=== PATIENT | female | born 1980 | race Caucasian/White ===

== ENCOUNTER 2019-05-22 14:09 | Emergency (ER) | payer MEDICAID, SELFPAY ==
--- NOTE | 2019-05-22 14:41 | ED.EYEPROB ---
HPI - Eye Problem General Chief complaint: Eye Problems <Keshia Colvin PA-C - Last Filed: 05/22/19 15:17> Stated complaint: left eye redness <Keshia Colvin PA-C - Last Filed: 05/22/19 15:17> Time Seen by Provider: 05/22/19 14:15 <Keshia Colvin PA-C - Last Filed: 05/22/19 15:17> Source: patient <Keshia Colvin PA-C - Last Filed: 05/22/19 15:17> Mode of arrival: ambulatory <Keshia Colvin PA-C - Last Filed: 05/22/19 15:17> Limitations: no limitations <Keshia Colvin PA-C - Last Filed: 05/22/19 15:17> History of Present Illness HPI Narrative: This is a 39 year old female that presents to the ER for left sided eye irritation and redness. Reports onset 2 days ago. No known injuries to the eye. Reports she is a contact lens wearer. She has continued to wear her contact lenses. Denies vision changes, vomiting, pain with EOMs, or discharge. <Keshia oClvin PA-C - Last Filed: 05/22/19 15:17> Related Data Allergies/adverse reactions: Allergies Allergy/AdvReac Type Severity Reaction Status Date / Time Penicillins Allergy Gastrointestinal Verified 05/22/19 14:41 Upset <Keshia Colvin PA-C - Last Filed: 05/22/19 15:17> Review of Systems Review of Systems: Narrative: CONSTITUTIONAL: Denies fever EYES: Reports redness. Denies visual changes, or discharge. <Keshia Colvin PA-C - Last Filed: 05/22/19 15:17> All systems reviewed & are unremarkable except as noted in HPI and below <Keshia Colvin PA-C - Last Filed: 05/22/19 15:17> PMFSH Past Medical History Medical History: Medical History (Updated 05/22/19 @ 15:08 by Keshia Colvin PA-C) GERD (gastroesophageal reflux disease) <Keshia Colvin PA-C - Last Filed: 05/22/19 15:17> Social History Social History: Social History (Updated 05/22/19 @ 14:44 by Keshia Colvin PA-C) Smoking status: Current every day smoker <Keshia Colvin PA-C - Last Filed: 05/22/19 15:17> Exam Narrative: Exam Narrative: GENERAL: Well-appearing, well-nourished, and in no acute distress. HEAD: Normocephalic, atraumatic. EYES: PERRLA and EOMI. Mild conjunctival injection of the left eye, no abnormal discharge. Eyelid everted, no foreign bodies noted. Vision 20/20 bilaterally. Positive fluorescein stain uptake on exam, 2 small corneal abrasions noted on the left. EXTREMITIES: Normal range of motion. No edema. SKIN: Warm, dry, no rash. NEURO: No focal deficits. Alert and oriented x3. PSYCH: Normal mood and affect <Keshia Colvin PA-C - Last Filed: 05/22/19 15:17> Course Vital Signs Vital signs: Vital Signs Temperature 37.0 C 05/22/19 14:43 Pulse Rate 82 05/22/19 14:43 Respiratory Rate 16 05/22/19 14:43 Blood Pressure 124/62 05/22/19 14:43 Pulse Oximetry 100 05/22/19 14:43 Temperature 37.0 C 05/22/19 14:43 Pulse Rate 82 05/22/19 14:43 Respiratory Rate 16 05/22/19 14:43 Blood Pressure 124/62 05/22/19 14:43 Pulse Oximetry 100 05/22/19 14:43 <Keshia Colvin PA-C - Last Filed: 05/22/19 15:17> Vital Signs Temperature 37.0 C 05/22/19 14:43 Pulse Rate 82 05/22/19 14:43 Respiratory Rate 16 05/22/19 14:43 Blood Pressure 124/62 05/22/19 14:43 Pulse Oximetry 100 05/22/19 14:43 Temperature 37.0 C 05/22/19 14:43 Pulse Rate 82 05/22/19 14:43 Respiratory Rate 16 05/22/19 14:43 Blood Pressure 124/62 05/22/19 14:43 Pulse Oximetry 100 05/22/19 14:43 <Curtis Benavides MD - Last Filed: 05/22/19 16:27> MDM - Eye Problem MDM Narrative Medical decision making narrative: Patient presents the emergency department for left eye irritation x2 days. No abnormal discharge from the eye. Mild conjunctival injection in the eye. There are 2 small corneal abrasions in the eye. No foreign bodies noted. Vision is 20/20 bilaterally. Patient is a contact lens wearer so will be started on a fluoroquinolone eye ointment. She was
[2019-05-22 14:43] VITALS: BP 124/62; PULSE 82; RESP 16; TEMP 37; O2SAT 100
== END 2019-05-22 15:18 | disposition home or self-care (01) ==
PROVIDERS: Emergency Provider Family Medicine
DX: S05.02XA Injury of conjunctiva and corneal abrasion without foreign body, left eye, initial encounter (principal); K21.9 Gastro-esophageal reflux disease without esophagitis; F17.200 Nicotine dependence, unspecified, uncomplicated; X58.XXXA Exposure to other specified factors, initial encounter
CPT/HCPCS: 99283; A9270

== ENCOUNTER 2019-09-10 12:56 | Outpatient (CLI) | payer MEDICAID, SELFPAY ==
[2019-09-10 13:40] LABS: Basophils Absolute Auto 0.1 K/mm3 (0.0-0.1); Basophils Percent Auto 0.7 % (0.2-1.2); Eosinophils Absolute Auto 0.2 K/mm3 (0-0.3); Hematocrit 42.4 % (37.0-47.0); Hemoglobin 14.3 g/dL (12.0-15.0); Immature Granulocyte Absolute 0.03 K/mm3 (0.00-0.031); Immature Granulocyte Percent A 0.3 % (0-0.5); Lymphocytes Absolute Auto 4.49 K/mm3 (0.9-3.2); Lymphocytes Percent Auto 38.3 % (18.3-44.2); Mean Corpuscular HGB Conc 33.7 g/dl (32-36); Mean Corpuscular Hemoglobin 29.3 pg (26-34); Mean Corpuscular Volume 86.9 fl (80-100); Mean Platelet Volume 8.8 fl (7.4-10.4); Monocytes Absolute Auto 0.7 K/mm3 (0.1-0.6); Monocytes Percent Auto 5.6 % (2.6-8.5); Neutrophils Absolute Auto 6.2 K/mm3 (1.3-6.7); Neutrophils Percent Auto 53.1 % (45.5-73.1); Platelet Count Result 286 k/mm3 (150-375); Red Blood Count 4.88 M/mm3 (4.2-5.4); Red Cell Distribution Width 13.3 % (11.5-14.5); White Blood Count 11.7 K/mm3 (4.5-10.0)
[2019-09-10 13:49] LABS: Atypical Lymphocytes Present; Platelet Estimate Adequate (Adequate)
[2019-09-10 13:57] LABS: Alanine Aminotransferase 62 U/L (4-35); Albumin Level 4.4 g/dL (3.5-5.1); Alkaline Phosphatase 60 U/L (38-126); Aspartate Amino Transferase 56 U/L (14-36); Bilirubin,Total 0.2 mg/dL (0.2-1.3); Blood Urea Nitrogen 10 mg/dL (7-17); Carbon Dioxide 28 mmol/L (22-30); Chloride 104 mmol/L (98-107); Cholesterol 182 mg/dL (0-200); Estimated Glomerular Filt Rate > 60; Glucose 74 mg/dL (65-105); HDL Direct 29 mg/dL; Potassium 4.1 mmol/L (3.4-5.0); Sodium 137 mmol/L (137-145); Triglycerides 349 mg/dL (<150)
[2019-09-10 14:09] LABS: LDL Cholesterol Direct 75 mg/dL
[2019-09-10 14:23] LABS: Vitamin D 25 Hydroxy 38.9 ng/mL
[2019-09-10 14:28] LABS: Total Triiodothyronine (T3) 1.44 NG/ML (0.97-1.69)
[2019-09-12 01:37] LABS: CA-125 10 U/mL (<35)
== END 2019-09-10 12:57 | disposition home or self-care (01) ==
PROVIDERS: PCP Family Medicine
DX: R10.30 Lower abdominal pain, unspecified (principal)
CPT/HCPCS: 36415; 80053; 80061; 82306; 84439; 84443; 84480; 85025; 86304

== ENCOUNTER 2019-09-12 09:03 | Outpatient (CLI) | payer MEDICAID, SELFPAY ==
--- NOTE | ~2019-09-12 | CT_ITS ---
EXAMINATION: CT abdomen w con DATE: 09/12/2019 09:40 INDICATION: Abdominal bloating TECHNIQUE: Computed tomography (CT) of the abdomen was performed with 100 cc Omnipaque 350 intravenou s contrast. Automated exposure control and iterative reconstruction technique were employed. Exam dos e: 250.83 mGy-cm total exam DLP. COMPARISON: None. FINDINGS: The lung bases are clear. Normal heart size. No pericardial or pleural effusion. There is diffuse hepatic steatosis. Status post cholecystectomy. No bile duct or pancreatic duct dilatation. No hepatic, splenic, pancreatic, right adrenal space-occupying mass lesion. An approximately 1 cm lef t adrenal adenoma. Possible 5 mm left lateral limb adrenal adenoma. Probable 6 mm right renal cyst. No other renal space occupying mass lesion. No urinary tract calculus or hydronephrosis. Normal caliber of the abdominal aorta. No intraperitoneal or retroperitoneal mass lesion or adenopath y or ascites. The appendix is partially included in the examination appears normal. No evidence of bowel obstructio n. No intraperitoneal free air. Small fat-containing umbilical hernia. Included skeletal structures are unremarkable. IMPRESSION: Hepatic steatosis Status post cholecystectomy Left adrenal adenoma(s) 6 mm right renal cyst Reviewed, dictated and finalized at [facility]. Reviewed, dictated and finalized at location [facility].
== END 2019-09-12 09:04 | disposition home or self-care (01) ==
PROVIDERS: PCP Family Medicine; Visit Provider Family Medicine
DX: R14.0 Abdominal distension (gaseous) (principal); K76.0 Fatty (change of) liver, not elsewhere classified; D35.02 Benign neoplasm of left adrenal gland; N28.1 Cyst of kidney, acquired; Z90.49 Acquired absence of other specified parts of digestive tract
CPT/HCPCS: 74160; Q9967

== ENCOUNTER 2019-10-15 10:02 | Outpatient (CLI) | payer MEDICAID, SELFPAY ==
[2019-10-15 10:54] LABS: Alanine Aminotransferase 46 U/L (4-35); Alkaline Phosphatase 65 U/L (38-126); Aspartate Amino Transferase 43 U/L (14-36); Bilirubin,Total 0.4 mg/dL (0.2-1.3)
[2019-10-15 11:34] LABS: HIV 1/2 Ab P24 Ag Result Negative (Negative)
== END 2019-10-15 10:03 | disposition home or self-care (01) ==
PROVIDERS: PCP Family Medicine; Visit Provider Nurse Practitioner
DX: K75.81 Nonalcoholic steatohepatitis (NASH) (principal); R10.30 Lower abdominal pain, unspecified; R14.0 Abdominal distension (gaseous)
CPT/HCPCS: 36415; 80076; 84450; 84460; 86703; G0432

== ENCOUNTER 2019-11-13 11:37 | Outpatient (CLI) | payer OTHER, SELFPAY ==
[2019-11-13 12:19] LABS: Alanine Aminotransferase 47 U/L (4-35); Albumin Level 4.1 g/dL (3.5-5.1); Alkaline Phosphatase 60 U/L (38-126); Aspartate Amino Transferase 37 U/L (14-36); Bilirubin,Total 0.1 mg/dL (0.2-1.3); Blood Urea Nitrogen 11 mg/dL (7-17); Calcium 9.1 mg/dL (8.4-10.2); Carbon Dioxide 29 mmol/L (22-30); Chloride 104 mmol/L (98-107); Creatine Kinase 64 U/L (30-135); Estimated Glomerular Filt Rate > 60; Glucose 100 mg/dL (65-105); Sodium 139 mmol/L (137-145)
== END 2019-11-13 11:38 | disposition home or self-care (01) ==
PROVIDERS: PCP Family Medicine; Visit Provider Nurse Practitioner
DX: E78.1 Pure hyperglyceridemia (principal); K76.0 Fatty (change of) liver, not elsewhere classified
CPT/HCPCS: 36415; 80053; 82550

== ENCOUNTER 2019-12-25 12:32 | Outpatient (CLI) | payer OTHER, SELFPAY ==
[2019-12-25 13:11] LABS: Alanine Aminotransferase 41 U/L (4-35); Albumin Level 4.2 g/dL (3.5-5.1); Alkaline Phosphatase 57 U/L (38-126); Anion Gap 6 mmol/L (8-16); Aspartate Amino Transferase 40 U/L (14-36); Bilirubin,Total 0.4 mg/dL (0.2-1.3); Blood Urea Nitrogen 12 mg/dL (7-17); Calcium 8.9 mg/dL (8.4-10.2); Carbon Dioxide 26 mmol/L (22-30); Chloride 106 mmol/L (98-107); Creatine Kinase 68 U/L (30-135); Estimated Glomerular Filt Rate > 60; Glucose 98 mg/dL (65-105); Sodium 138 mmol/L (137-145)
[2019-12-25 13:49] LABS: HIV 1/2 Ab P24 Ag Result Negative (Negative)
[2019-12-25 13:56] LABS: Hepatitis B Surface Antigen Negative (Negative)
[2019-12-25 14:02] LABS: HAV RESULT Negative (Negative); Hepatitis B Core IgM Result Negative (Negative)
[2019-12-25 14:13] LABS: Hepatitis C Virus Antibody Negative (Negative)
== END 2019-12-25 12:33 | disposition home or self-care (01) ==
PROVIDERS: PCP Family Medicine; Visit Provider Nurse Practitioner
DX: K76.0 Fatty (change of) liver, not elsewhere classified (principal); R94.5 Abnormal results of liver function studies; R76.0 Raised antibody titer; R60.9 Edema, unspecified; M79.10 Myalgia, unspecified site
CPT/HCPCS: 36415; 80053; 80074; 82550; 86703; G0432

== ENCOUNTER 2020-01-01 13:25 | Outpatient (CLI) | payer OTHER, SELFPAY ==
--- NOTE | ~2020-01-01 | MM_ITS ---
EXAMINATION: MM screening sujatha BI w ant HISTORY: Screening TECHNIQUE: Craniocaudal and mediolateral oblique 3-D tomosynthesis images were obtained and synthetic 2-D images were generated. CAD analysis was submitted and interpreted. COMPARISON: No prior mammogram is available for comparison at this institution. BREAST PARENCHYMAL COMPOSITION: The breasts are heterogeneously dense, which may obscure small masses . FINDINGS: There is no evidence of suspicious mass, calcification, or architectural distortion to sugg est malignancy in either breast. There has been no suspicious interval change. IMPRESSION: 1. No mammographic evidence of malignancy. 2. Recommend routine screening mammography in one year. BI-RADS Category 1: Negative Reviewed, dictated and finalized at location [facility].
== END 2020-01-01 13:26 | disposition home or self-care (01) ==
LOC: ANHIMG 13:27
PROVIDERS: PCP Family Medicine; Visit Provider Nurse Practitioner
DX: Z12.31 Encounter for screening mammogram for malignant neoplasm of breast (principal)
CPT/HCPCS: 77063; 77067

== ENCOUNTER 2020-02-11 11:41 | Outpatient (CLI) | payer OTHER, SELFPAY ==
[2020-02-11 12:21] LABS: Basophils Absolute Auto 0.1 K/mm3 (0.0-0.1); Basophils Percent Auto 0.6 % (0.2-1.2); Eosinophils Absolute Auto 0.2 K/mm3 (0-0.3); Eosinophils Percent Auto 1.8 % (0-4.4); Hematocrit 42.8 % (37.0-47.0); Hemoglobin 14.2 g/dL (12.0-15.0); Immature Granulocyte Absolute 0.05 K/mm3 (0.00-0.031); Immature Granulocyte Percent A 0.4 % (0-0.5); Lymphocytes Absolute Auto 4.06 K/mm3 (0.9-3.2); Lymphocytes Percent Auto 35.5 % (18.3-44.2); Mean Corpuscular HGB Conc 33.2 g/dl (32-36); Mean Corpuscular Volume 87.3 fl (80-100); Mean Platelet Volume 8.2 fl (7.4-10.4); Monocytes Absolute Auto 0.6 K/mm3 (0.1-0.6); Monocytes Percent Auto 5.5 % (2.6-8.5); Neutrophils Absolute Auto 6.4 K/mm3 (1.3-6.7); Neutrophils Percent Auto 56.2 % (45.5-73.1); Platelet Count Result 240 k/mm3 (150-375); Red Cell Distribution Width 12.8 % (11.5-14.5); White Blood Count 11.4 K/mm3 (4.5-10.0)
[2020-02-11 12:36] LABS: Alanine Aminotransferase 103 U/L (4-35); Albumin Level 4.1 g/dL (3.5-5.1); Alkaline Phosphatase 55 U/L (38-126); Anion Gap 8 mmol/L (8-16); Aspartate Amino Transferase 54 U/L (14-36); Bilirubin,Total 0.5 mg/dL (0.2-1.3); Blood Urea Nitrogen 12 mg/dL (7-17); Calcium 9.3 mg/dL (8.4-10.2); Carbon Dioxide 33 mmol/L (22-30); Chloride 99 mmol/L (98-107); Estimated Glomerular Filt Rate > 60; Glucose 111 mg/dL (65-105); Magnesium 1.7 mg/dL (1.6-2.3); Phosphorus 3.4 mg/dL (2.5-4.5); Potassium 4.5 mmol/L (3.4-5.0); Sodium 140 mmol/L (137-145)
[2020-02-11 12:42] LABS: NT Pro B Type Natriuretic Pept 47 PG/ML (5-100)
[2020-02-11 13:39] LABS: Folic Acid 9.1 ng/mL (2.76->20)
== END 2020-02-11 11:42 | disposition home or self-care (01) ==
PROVIDERS: PCP Family Medicine; Visit Provider Nurse Practitioner
DX: M79.662 Pain in left lower leg (principal); M79.661 Pain in right lower leg; R60.9 Edema, unspecified; R94.5 Abnormal results of liver function studies; K76.0 Fatty (change of) liver, not elsewhere classified
CPT/HCPCS: 36415; 80053; 82306; 82607; 82746; 83735; 83880; 84100; 85025

== ENCOUNTER 2020-04-07 13:36 | Outpatient (CLI) | payer OTHER, SELFPAY ==
--- NOTE | ~2020-04-07 | XR_ITS ---
LUMBAR SPINE INDICATION: Low back pain TECHNIQUE: 3 views lumbar spine COMPARISON: None FINDINGS: No fracture, subluxation or dislocation. No evidence for spondylolysis or spondylolisthesi s. Vertebral bodies and disk spaces are preserved. There are cholecystectomy clips. IMPRESSION: 1: No significant abnormality of the lumbar spine identified. Reviewed, dictated and finalized at location [facility]. 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
[2020-04-07 14:25] LABS: Cholesterol 244 mg/dL (0-200); HDL Direct 25 mg/dL; Triglycerides 287 mg/dL (<150)
[2020-04-07 14:35] LABS: LDL Cholesterol Direct 170 mg/dL
== END 2020-04-07 13:37 | disposition home or self-care (01) ==
LOC: ANHLAB 13:37
PROVIDERS: PCP Family Medicine; Visit Provider Nurse Practitioner
DX: M54.5 Low back pain (principal); E78.1 Pure hyperglyceridemia
CPT/HCPCS: 36415; 72100; 80061

== ENCOUNTER 2020-04-30 13:15 | Outpatient (RCR) | payer OTHER, SELFPAY ==
--- NOTE | 2020-04-08 10:38 | PTOPEVAL ---
PHYSICAL THERAPY EVALUATION AND PLAN OF CARE Thank you for referring Debbi Zhao to [facility].? The patient is scheduled to be seen for therapy? 2x/week for 4 weeks. Please review, sign, date and return this plan of care BLANCHE. I agree with and certify that the following plan of care is medically necessary. Referring Physician Date Attending Provider: Umu Livingston, CAREER TECHNICAL EDUCATION INSTRUCTOR Evaluation Diagnosis weakness, bilateral Leg pain Onset 4months Subjective Information Debbi is here today with c/o Query Text:As Reported By Patient/ leg pain. She reports that Family she was placed in lipitor but it caused leg pain and swelling, so she was taken off the medication and placed on something else that didn't work either and now her legs contiue her hurt. Reports that sleeping is very difficult. Self Report Pain Assessment Bilateral Leg(s) Reported Pain Level 7 Pain Description Burning,Stabbing Pain Frequency Chronic,Continuous Other Pain Aggravating Factors nothing imparticular aggravates Pain Behaviors Irritable Pain Score Pain Score 7: Self Report Interventions Used Interventions Used By Clinicians Exercise Pain Relief Interventions Used By Heat Patient Other Alleviating Interventions states that elevating increases symptoms Cervical and Lumbar ROM Lumbar ROM Lumbar Flexion (0-90) 40 Query Text:Active in Degrees Lumbar Flexion Active Mid Theodore Query Text:Hands to: Lumbar Extension (0-40) 8 Query Text:Active in Degrees Lateral Rotation Right (0-45) 20 Query Text:Active in Degrees Lateral Rotation Left (0-45) 30 Query Text:Active in Degrees Lumbar Comments very stiff and slow movements; left rotation increased pulling in low back; extension is performed with mild abberent movement with left rotation Lower Extremity Muscle Strength Testing Hip Strength Bilateral Hip Flexion Strength 4- Good - Hip Extension Strength 3- Fair - Hip Abduction Strength 4+ Good + Hip Strength Comments reports a pulling in her back with MMT Knee Strength Bilateral Knee Flexion Strength 3+ Fair + Knee Extension Strength 3+ Fair + Knee Strength Comments repor
--- NOTE | 2020-04-23 07:32 | PCPTNOTE ---
Patient called & cancelled scheduled appointment this date due to not getting enough sleep.
--- NOTE | 2020-04-30 13:30 | PTOPEVAL ---
PHYSICAL THERAPY DISCHARGE NOTE Thank you for referring Debbi Zhao to [facility].? Please review, sign, date and return this plan of care BLANCHE. I agree with and certify that the following plan of care is medically necessary. Referring Physician Date Attending Provider: Umu Livingston, INTERNIST Discharge Diagnosis weakness, bilateral Leg pain Onset 4months Subjective Information Debbi is here today with c/o Query Text:As Reported By Patient/ leg pain. After 3 weeks of Family therapy states there is not a significant change in the leg pain that she experiences. Self Report Pain Assessment Bilateral Leg(s) Reported Pain Level 7 Pain Description Tightness Pain Frequency Continuous Pain Aggravating Factors Walking Pain Score Pain Score 7: Self Report Interventions Used Interventions Used By Clinicians Exercise Pain Relief Interventions Used By Heat Patient Other Alleviating Interventions . Cervical and Lumbar ROM Lumbar ROM Lumbar Flexion (0-90) 45 Query Text:Active in Degrees Lumbar Flexion Active Mid Theodore Query Text:Hands to: Lumbar Extension (0-40) 5 Query Text:Active in Degrees Lateral Rotation Right (0-45) 25 Query Text:Active in Degrees Lateral Rotation Left (0-45) 25 Query Text:Active in Degrees Lumbar Comments very stiff and slow movements; extension continues to have mild abberent movement Lower Extremity Muscle Strength Testing Hip Strength Bilateral Hip Flexion Strength 4+ Good + Hip Extension Strength 4- Good - Hip Abduction Strength 5 Normal Hip Strength Comments reports mild symptoms in the low back with MMT, but nothing terrible. Knee Strength Bilateral Knee Flexion Strength 4+ Good + Knee Extension Strength 4+ Good + Knee Strength Comments reports a little pain in low back with MMT Muscle Length Testing Muscle Length Testing Left Hamstring Length -35 Query Text:(90 - 90 Position) Right Hamstring Length -35 Query Text:(90 - 90 Position) Balance Assessment Time Up Go (TUG) Timed Up and Go Test (TUG) (Seconds) 13 Assistive Devices None Comments 3 weeks ago = 14seconds 5 Time Sit to Stand Time in Seconds 13.81 5 Time Sit to Stand Comments 3 weeks ago = 19.44seconds Query Text:Normative Data: If Greater Than 15 Seconds, 74% Increase Risk for
== END 2020-06-22 10:40 | disposition home or self-care (01) ==
LOC: ANHPT 13:15
PROVIDERS: PCP Family Medicine; Visit Provider Nurse Practitioner
DX: R53.1 Weakness (principal)
CPT/HCPCS: 97110; 97112; 97140; 97161

== ENCOUNTER 2020-05-07 10:21 | Outpatient (CLI) | payer OTHER, SELFPAY ==
--- NOTE | ~2020-05-07 | MR_ITS ---
EXAMINATION: MR lumbar spine wo con DATE: 05/07/2020 11:26 INDICATION: Low back pain. TECHNIQUE: Magnetic resonance imaging (MRI) of the lumbar spine was performed without intravenous con trast. Sequences included sagittal T2-weighted FSE, sagittal T2-weighted FS FSE, sagittal T1-weighted FSE, and axial T2-weighted FSE. COMPARISON: Lumbar spine radiographs 04/07/2020 FINDINGS: Bone alignment is normal. Vertebral body heights and intervertebral disc heights are normal . The distal spinal cord signal intensity is normal. The conus medullaris is at L1-L2. The following disc levels are specifically discussed: L1-L2: The disc does not extend beyond the endplate margin. There is mild bilateral facet joint osteo arthritis. There is no neural foraminal stenosis. There is no central canal stenosis. L2-L3: The disc does not extend beyond the endplate margin. There is mild bilateral facet joint osteo arthritis. There is no neural foraminal stenosis. There is no central canal stenosis. L3-L4: The disc does not extend beyond the endplate margin. There is no facet joint osteoarthritis. T here is no neural foraminal stenosis. There is no central canal stenosis. L4-L5: The disc does not extend beyond the endplate margin. There is mild bilateral facet joint osteo arthritis. There is no neural foraminal stenosis. There is no central canal stenosis. L5-S1: The disc does not extend beyond the endplate margin. There is moderate right and severe left f acet joint osteoarthritis. There is no neural foraminal stenosis. There is no central canal stenosis. IMPRESSION: 1. Lumbar facet joint osteoarthritis. Reviewed, dictated and finalized at location [facility]. 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
== END 2020-05-07 10:22 | disposition home or self-care (01) ==
PROVIDERS: PCP Family Medicine; Visit Provider Nurse Practitioner
DX: M51.36 Other intervertebral disc degeneration, lumbar region (principal)
CPT/HCPCS: 72148

== ENCOUNTER 2020-06-11 16:45 | Emergency (ER) | payer OTHER, SELFPAY ==
[2020-06-11 16:50] VITALS: BP 134/74; PULSE 66; RESP 15; TEMP 36.1; O2SAT 100
--- NOTE | 2020-06-11 17:31 | ED.DENTAL ---
HPI - Dental/Oral General Chief complaint: Dental/Oral Stated complaint: toothache Time Seen by Provider: 06/11/20 17:00 Source: patient Mode of arrival: ambulatory Limitations: no limitations History of Present Illness HPI Narrative: Patient is a 40-year-old female who presents with left upper molar pain where she has dental caries and a loose tooth patient notes aching pain worse with activity and movement patient denies fever chills URI symptoms does not have a dentist presents in no distress Related Data Allergies Allergy/AdvReac Type Severity Reaction Status Date / Time amoxicillin Allergy Gastrointestinal Verified 06/11/20 17:01 Upset Penicillins Allergy Gastrointestinal Verified 06/11/20 17:01 Upset Review of Systems Review of Systems: All systems reviewed & are unremarkable except as noted in HPI and below PMFSH Past Medical History Medical History GERD (gastroesophageal reflux disease) Social History Social History Smoking status: Current every day smoker Gender identity (if verbalized by the patient): Female Exam Narrative: Exam Narrative: GENERAL: Well-appearing, well-nourished, and in no acute distress. HEAD: Normocephalic, atraumatic. EYES: PERRLA and EOMI. ENT: Nares clear, no rhinorrhea or epistaxis. Mucous membranes moist. Gross dental caries with loose premolar no erythema or space-occupying lesions uvula is midline no trismus or drooling CHEST: Clear to auscultation. No respiratory distress. No wheezes rales or rhonchi HEART: Regular rate and rhythm. No murmur heard. EXTREMITIES: Normal range of motion. No edema. SKIN: Warm, dry, no rash. NEURO: No focal deficits. Alert and oriented x3. Cranial nerves II through XII grossly intact PSYCH: Normal mood and affect. Course Course Emergency Course: Patient in the room no distress will be discharged with dentistry referrals Vital Signs Vital signs: Vital Signs Temperature 97.0 F L 06/11/20 16:50 Pulse Rate 66 06/11/20 16:50 Respiratory Rate 15 06/11/20 16:50 Blood Pressure 134/74 06/11/20 16:50 Pulse Oximetry 100 06/11/20 16:50 Temperature 97.0 F L 06/11/20 16:50 Pulse Rate 66 06/11/20 16:50 Respiratory Rate 15 06/11/20 16:50 Blood Pressure 134/74 06/11/20 16:50 Pulse Oximetry 100 06/11/20 16:50 MDM - Dental/Oral MDM Narrative Medical decision making narrative: Patients pain and complaint coupled with physical findings are consistent with dentalgia. There are no focal signs of space occupying lesions that are compromising to the airway. The floor of the mouth is soft with no signs of Cornelius Angina. Patient is without trismus or drooling and able to swallow secretions. Patient is felt appropriate for discharge home with dental follow up. Discharge Plan Discharge Clinical Impression: Toothache Patient Disposition: Home, Self-Care Condition: Stable Instructions: Antibiotic Form, Dental Abscess (ED) Additional Instructions: Follow-up with dentistry in the next 10 days. Go to ER for shortness of breath, difficulty breathing, chest pain, fever/chills, weakness, nauseau/vomitting, unable to swallow or open the mouth etc. or any other concerns. Take any prescribed medications as directed. If you do not have a drug allergy to tylenol or motrin and can tolerate it then take tylenol or motrin as needed for discomfort/pain. Prescriptions: New clindamycin HCl 150 mg capsule 150 mg PO TID 10 Days Qty: 30 RF: 0 chlorhexidine gluconate [Peridex] 0.12 % mouthwash 15 ml mucous membrane BID Qty: 1500 RF: 0 ibuprofen [IBU] 600 mg tablet 600 mg PO Q6H PRN (Reason: fever or pain) Qty: 7 RF: 0 No Action ciprofloxacin HCl 0.3 % ointment 0.5 inch EACH EYE TID 5 Days Qty: 3.5 RF: 0 Follow-up/Referrals: Yovany Parisi MD [Primary Care Provider] -
== END 2020-06-11 17:56 | disposition home or self-care (01) ==
PROVIDERS: Emergency Provider Emergency Medicine; PCP Family Medicine
DX: K08.89 Other specified disorders of teeth and supporting structures (principal); K21.9 Gastro-esophageal reflux disease without esophagitis; F17.210 Nicotine dependence, cigarettes, uncomplicated
CPT/HCPCS: 99283

== ENCOUNTER 2020-07-03 21:07 | Emergency (ER) | payer OTHER, SELFPAY ==
--- NOTE | ~2020-07-03 | XR_ITS ---
EXAMINATION: XR chest 2V 07/03/2020 21:35 INDICATION: Chest pain and cough PROCEDURE: 2 view chest COMPARISON: No prior studies for comparison. FINDINGS: The lungs are clear. The cardiomediastinal silhouette is within normal limits. There are no pleural effusions. There is no pneumothorax suspected. IMPRESSION: 1: NO ACUTE CARDIOPULMONARY DISEASE. Reviewed, dictated and finalized at location [facility]. 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
[2020-07-03 21:10] VITALS: BP 145/77; PULSE 68; RESP 16; TEMP 36.3; O2SAT 98
--- NOTE | 2020-07-03 21:23 | ECG_ITS ---
Measurements Intervals [place] Rate: 68 P: -20 [place]: 144 QRS: 64 QRSD: 82 T: 47 QT: 377 QTc: 403 Interpretive Statements SINUS OR ECTOPIC ATRIAL RHYTHM BASELINE ARTIFACT- I, II, AVR BORDERLINE ECG Electronically Signed On 07-04-2020 7:17:35 FLOOR ASSEMBLER by Christopher Davis D.O.
[2020-07-03 21:29] VITALS: PULSE 84; O2SAT 96
--- NOTE | 2020-07-03 21:35 | PC.NURSE ---
Patient in radiology
[2020-07-03 21:40] LABS: Basophils Absolute Auto 0.1 K/mm3 (0.0-0.1); Basophils Percent Auto 0.6 % (0.2-1.2); Eosinophils Absolute Auto 0.2 K/mm3 (0-0.3); Eosinophils Percent Auto 1.7 % (0-4.4); Hematocrit 39.9 % (37.0-47.0); Hemoglobin 13.2 g/dL (12.0-15.0); Immature Granulocyte Absolute 0.04 K/mm3 (0.00-0.031); Immature Granulocyte Percent A 0.3 % (0-0.5); Lymphocytes Absolute Auto 4.75 K/mm3 (0.9-3.2); Lymphocytes Percent Auto 40.6 % (18.3-44.2); Mean Corpuscular HGB Conc 33.1 g/dl (32-36); Mean Corpuscular Hemoglobin 28.6 pg (26-34); Mean Corpuscular Volume 86.6 fl (80-100); Mean Platelet Volume 8.5 fl (7.4-10.4); Monocytes Absolute Auto 0.6 K/mm3 (0.1-0.6); Neutrophils Absolute Auto 6.1 K/mm3 (1.3-6.7); Neutrophils Percent Auto 51.8 % (45.5-73.1); Platelet Count Result 308 k/mm3 (150-375); Red Blood Count 4.61 M/mm3 (4.2-5.4); Red Cell Distribution Width 13.2 % (11.5-14.5); White Blood Count 11.7 K/mm3 (4.5-10.0)
[2020-07-03] MEDS: ASPIRIN 81 MG CHEWABLE TABLET 324 MG PO (21:40)
[2020-07-03 21:50] LABS: INR 0.9; Partial Thromboplastin Time 30.3 SECONDS (22.3-36.8); Prothrombin Time 13.1 Seconds (11.1-14.7)
[2020-07-03 21:57] LABS: Anion Gap 9 mmol/L (8-16); Blood Urea Nitrogen 9 mg/dL (7-17); Calcium 8.9 mg/dL (8.4-10.2); Carbon Dioxide 28 mmol/L (22-30); Chloride 103 mmol/L (98-107); Estimated CRCL calculation 82 ml/min; Estimated Glomerular Filt Rate > 60; Glucose 144 mg/dL (65-105); Potassium 3.6 mmol/L (3.4-5.0); Sodium 140 mmol/L (137-145)
[2020-07-03 22:09] LABS: Troponin I < 0.012 ng/mL (0.000-0.034)
[2020-07-03 22:13] VITALS: BP 117/68; PULSE 72; RESP 22; O2SAT 99
--- NOTE | 2020-07-03 22:46 | ED.GENADULT ---
HPI - General Adult General Chief complaint: Chest Pain Stated complaint: upper respiratory Time Seen by Provider: 07/03/20 21:20 History of Present Illness HPI narrative: Patient is a 40-year-old female who presents the emergency department with chief complaint of chest pain. Patient reports that for the last several week episodes of chest discomfort. Patient states the pain is more of a pressure-like sensation states is worse with inspiration reports that she seen her primary care physician who did not recommend any other interventions patient states that she talked with her family today and they decided that she should come to the emergency department for evaluation. Patient denies any significant past medical history other than high cholesterol. Patient reports that she is a former smoker Related Data Allergies Allergy/AdvReac Type Severity Reaction Status Date / Time amoxicillin Allergy Gastrointestinal Verified 06/11/20 17:01 Upset Penicillins Allergy Gastrointestinal Verified 06/11/20 17:01 Upset Review of Systems Review of Systems: Narrative: A 10 system review of systems was completed on the patient and is negative except for what is stated in the HPI. Nursing and ancillary documentation was reviewed. [facility] Past Medical History Medical History GERD (gastroesophageal reflux disease) Social History Social History Smoking status: Current every day smoker Gender identity (if verbalized by the patient): Female Exam Narrative: Exam Narrative: GENERAL: Well-appearing, well-nourished, and in no acute distress. HEAD: Normocephalic, atraumatic. EYES: PERRLA and EOMI. ENT: Nares clear, no rhinorrhea or epistaxis. Mucous membranes moist. NECK: Supple. CHEST: Clear to auscultation. No respiratory distress. Reproducible chest wall tenderness HEART: Regular rate and rhythm. No murmur heard. Normal peripheral pulses. ABDOMEN: Soft, nontender, nondistended, normal active bowel sounds. EXTREMITIES: Normal range of motion. No edema. SKIN: Warm, dry, no rash. NEURO: No focal deficits. Alert and oriented x3. PSYCH: Normal mood and affect. Course Course Emergency Course: EKG shows sinus rhythm rate of [address] elevation or ST depression Vital Signs Vital signs: Vital Signs Temperature 36.3 C L 07/03/20 21:10 Pulse Rate 68 03/12/21 21:10 Respiratory Rate 16 07/03/20 21:10 Blood Pressure 145/77 H 07/03/20 21:10 Pulse Oximetry 98 07/03/20 21:10 Temperature 36.3 C L 07/03/20 21:10 Pulse Rate 68 07/03/20 23:27 Respiratory Rate 20 07/03/20 23:27 Blood Pressure 121/72 07/03/20 23:27 Pulse Oximetry 97 07/03/20 23:27 Medical Decision Making Vital Signs Vital Signs: Vital Signs Temperature 36.3 C L 07/03/20 21:10 Pulse Rate 68 07/03/20 21:10 Respiratory Rate 16 07/03/20 21:10 Blood Pressure 145/77 H 07/03/20 21:10 Pulse Oximetry 98 07/03/20 21:10 Temperature 36.3 C L 07/03/20 21:10 Pulse Rate 68 07/03/20 23:27 Respiratory Rate 20 07/03/20 23:27 Blood Pressure 121/72 07/03/20 23:27 Pulse Oximetry 97 07/03/20 23:27 Lab Data Result diagrams: 07/03/20 21:28 07/03/20 21:28 Labs: Lab Results 07/03/20 07/03/20 07/03/20 Range/Units 21:28 21:28 21:28 WBC 11.7 H (4.5-10.0) K/mm3 RBC 4.61 (4.2-5.4) M/mm3 Hgb 13.2 (12.0-15.0) g/dL Hct 39.9 (37.0-47.0) % MCV 86.6 (80-100) fl MCH 28.6 (26-34) pg MCHC 33.1 (32-36) g/dl RDW 13.2 (11.5-14.5) % Plt Count 308 (150-375) k/mm3 MPV 8.5 (7.4-10.4) fl Immature Gran % (Auto) 0.3 (0-0.5) % Neut % (Auto) 51.8 (45.5-73.1) % Lymph % (Auto) 40.6 (18.3-44.2) % [place] % (Auto) 5.0 (2.6-8.5) % Eos % (Auto) 1.7 (0-4.4) % Baso % (Auto) 0.6 (0.2-1.2) % Lymph # (Auto) 4.75 H
[2020-07-03 23:27] VITALS: BP 121/72; PULSE 68; RESP 20; O2SAT 97
[2020-07-04] VITALS: BP 114/68; PULSE 68; RESP 17; O2SAT 97
== END 2020-07-04 00:04 | disposition home or self-care (01) ==
PROVIDERS: Emergency Provider Emergency Medicine; PCP Family Medicine
DX: R07.89 Other chest pain (principal); K21.9 Gastro-esophageal reflux disease without esophagitis; F17.200 Nicotine dependence, unspecified, uncomplicated; R94.31 Abnormal electrocardiogram [ECG] [EKG]
CPT/HCPCS: 36415; 71046; 80048; 84484; 85025; 85610; 85730; 93005; 99284; A9270

== ENCOUNTER 2020-07-21 09:29 | Outpatient (CLI) | payer OTHER, SELFPAY ==
--- NOTE | 2020-07-21 | EST_ITS ---
Patient Info Name: Debbi Zhao Age: 40 years : 1980 Gender: Female Ht: 65 in Wt: 158 lbs BSA: 1.83 m2 Exam Date: 07/21/2020 10:14 AM Exam Location: [facility] Stress Patient Status: Outpatient Admit Date: 07/21/2020 Staff Ordering Physician: Miki, Umu Mccormick NP Attending Provider: Miki, Umu Mccormick NP Exercise Technologist: Saima Quintana RDCS Exercise Physician: Pedro Raymond MD Exam Type: CA stress test treadmill Study Info Indications R07.9 - Chest pain, unspecified A treadmill exercise stress test was performed. Summary 1. Abnormal ST segment depression consistent with myocardial ischemia. 2. No exercise induced chest pain. Protocol: Jay Stress ECG Details Stage: REST Duration (min): 7 min : 26 sec Speed (mph): 0.0 Grade (%): 0 HR (bpm): 74 SBP (mmHg): 121 DBP (mmHg): 65 METS: --- Stage: REST Duration (min): 35 min : 14 sec Speed (mph): 0.0 Grade (%): 0 HR (bpm): 94 SBP (mmHg): 121 DBP (mmHg): 65 METS: --- Stage: STAGE 1 Duration (min): 1 min : 0 sec Speed (mph): 1.7 Grade (%): 10 HR (bpm): 107 SBP (mmHg): 121 DBP (mmHg): 65 METS: --- Stage: STAGE 1 Duration (min): 2 min : 0 sec Speed (mph): 1.7 Grade (%): 10 HR (bpm): 114 SBP (mmHg): 121 DBP (mmHg): 65 METS: --- Stage: STAGE 1 Duration (min): 3 min : 0 sec Speed (mph): 1.7 Grade (%): 10 HR (bpm): 114 SBP (mmHg): 148 DBP (mmHg): 67 METS: --- Stage: STAGE 2 Duration (min): 1 min : 0 sec Speed (mph): 2.5 Grade (%): 12 HR (bpm): 129 SBP (mmHg): 148 DBP (mmHg): 67 METS: --- Stage: STAGE 2 Duration (min): 2 min : 0 sec Speed (mph): 2.5 Grade (%): 12 HR (bpm): 139 SBP (mmHg): 157 DBP (mmHg): 69 METS: --- Stage: STAGE 2 Duration (min): 3 min : 0 sec Speed (mph): 2.5 Grade (%): 12 HR (bpm): 151 SBP (mmHg): 157 DBP (mmHg): 69 METS: --- Stage: STAGE 3 Duration (min): 1 min : 0 sec Speed (mph): 3.4 Grade (%): 14 HR (bpm): 172 SBP (mmHg): 157 DBP (mmHg): 69 METS: --- Stage: STAGE 3 Duration (min): 1 min : 0 sec Speed (mph): 3.4 Grade (%): 14 HR (bpm): 172 SBP (mmHg): 157 DBP (mmHg): 69 METS: --- Stage: RECOVERY Duration (min): 0 min : 59 sec Speed (mph): 0.0 Grade (%): 0 HR (bpm): 150 SBP (mmHg): 162 DBP (mmHg): 72 METS: --- Stage: RECOVERY Duration (min): 1 min : 59 sec Speed (mph): 0.0 Grade (%): 0 HR (bpm): 118 SBP (mmHg): 162 DBP (mmHg): 72 METS: --- Stage: RECOVERY Duration (min): 2 min : 59 sec Speed (mph): 0.0 Grade (%): 0 HR (bpm): 103 SBP (mmHg): 161 DBP (mmHg): 66 METS: --- Stage: RECOVERY Duration (min): 3 min : 36 sec Speed (mph):
== END 2020-07-21 09:30 | disposition home or self-care (01) ==
PROVIDERS: PCP Family Medicine; Visit Provider Nurse Practitioner
DX: R07.9 Chest pain, unspecified (principal)
CPT/HCPCS: 93017

== ENCOUNTER 2020-08-20 11:14 | Outpatient (CLI) | payer OTHER, SELFPAY ==
[2020-08-20 12:28] LABS: Alanine Aminotransferase 113 U/L (4-35); Albumin Level 4.5 g/dL (3.5-5.1); Alkaline Phosphatase 73 U/L (38-126); Anion Gap 4 mmol/L (8-16); Aspartate Amino Transferase 110 U/L (14-36); Bilirubin,Total 0.8 mg/dL (0.2-1.3); Blood Urea Nitrogen 9 mg/dL (7-17); Calcium 9.4 mg/dL (8.4-10.2); Carbon Dioxide 34 mmol/L (22-30); Chloride 103 mmol/L (98-107); Cholesterol 225 mg/dL (0-200); Estimated Glomerular Filt Rate > 60; Glucose 116 mg/dL (65-105); HDL Direct 27 mg/dL; Potassium 5.1 mmol/L (3.4-5.0); Sodium 141 mmol/L (137-145); Triglycerides 308 mg/dL (<150)
[2020-08-20 12:40] LABS: LDL Cholesterol Direct 137 mg/dL
== END 2020-08-20 11:15 | disposition home or self-care (01) ==
LOC: ANHLAB 11:16
PROVIDERS: PCP Family Medicine; Visit Provider Internal Medicine Cardiovascular Disease
DX: E78.5 Hyperlipidemia, unspecified (principal)
CPT/HCPCS: 36415; 80053; 80061

== ENCOUNTER → 2020-09-05 03:36 | Outpatient (CLI) | payer OTHER, SELFPAY ==
[2020-09-05 19:43] LABS: SARS-CoV-2 RNA PCR Negative
== END ==
PROVIDERS: PCP Family Medicine; Visit Provider Specialist
DX: Z01.812 Encounter for preprocedural laboratory examination (principal); Z20.822 Contact with and (suspected) exposure to COVID-19
CPT/HCPCS: C9803; U0003; U0005

== ENCOUNTER 2020-09-09 03:10 | Day surgery (SDC) | payer OTHER, SELFPAY ==
[2020-09-08 10:30] VITALS: BMI 26.6
[2020-09-09] VITALS (8 sets, daily range): BP systolic 105–129; BP diastolic 64–81; PULSE 66–76; RESP 16–23; TEMP 36.3; O2SAT 95–97; BMI 29.6
[2020-09-09 07:38] LABS: Basophils Absolute Auto 0.1 K/mm3 (0.0-0.1); Basophils Percent Auto 0.9 % (0.2-1.2); Eosinophils Absolute Auto 0.2 K/mm3 (0-0.3); Eosinophils Percent Auto 2.5 % (0-4.4); Hemoglobin 13.3 g/dL (12.0-15.0); Immature Granulocyte Absolute 0.02 K/mm3 (0.00-0.031); Immature Granulocyte Percent A 0.2 % (0-0.5); Lymphocytes Absolute Auto 3.06 K/mm3 (0.9-3.2); Lymphocytes Percent Auto 33.6 % (18.3-44.2); Mean Corpuscular HGB Conc 33.3 g/dl (32-36); Mean Corpuscular Volume 84.2 fl (80-100); Mean Platelet Volume 8.2 fl (7.4-10.4); Monocytes Absolute Auto 0.6 K/mm3 (0.1-0.6); Monocytes Percent Auto 6.7 % (2.6-8.5); Neutrophils Absolute Auto 5.1 K/mm3 (1.3-6.7); Neutrophils Percent Auto 56.1 % (45.5-73.1); Platelet Count Result 302 k/mm3 (150-375); Red Blood Count 4.75 M/mm3 (4.2-5.4); Red Cell Distribution Width 12.9 % (11.5-14.5); White Blood Count 9.1 K/mm3 (4.5-10.0)
[2020-09-09 07:47] LABS: Anion Gap 10 mmol/L (8-16); Blood Urea Nitrogen 10 mg/dL (7-17); Calcium 9.6 mg/dL (8.4-10.2); Carbon Dioxide 26 mmol/L (22-30); Chloride 104 mmol/L (98-107); Estimated CRCL calculation 65 ml/min; Estimated Glomerular Filt Rate > 60; Glucose 122 mg/dL (65-105); Sodium 140 mmol/L (137-145)
[2020-09-09 07:48] LABS: Prothrombin Time 13.4 Seconds (11.1-14.7)
--- NOTE | 2020-09-09 08:29 | WPDMODSED ---
Moderate Sedation Note-Pt Data Patient Data Diagnosis: Chest pain Abnormal stress test Present Complaint: 40-year-old patient with intermittent sharp chest pain and electrocardiographically abnormal stress test Procedure to be performed/Plan: Left heart catheterization Allergies Allergy/AdvReac Type Severity Reaction Status Date / Time amoxicillin Allergy Gastrointestinal Verified 09/08/20 15:22 Upset chicken derived Allergy Swelling Verified 09/08/20 15:22 of Lip/Tongue/Throat Penicillins Allergy Gastrointestinal Verified 09/08/20 15:22 Upset Failclo-Foj-Vui Reductase AdvReac Muscle Pain Verified 09/08/20 15:22 Inhibitor Home Medications Medication Instructions Recorded Confirmed Type aspirin 81 mg tablet,delayed 81 mg PO DAILY 08/19/20 09/08/20 History release cholecalciferol (vitamin D3) 50 50 mcg PO HS 08/19/20 09/08/20 History mcg (2,000 unit) capsule ezetimibe 10 mg tablet 10 mg PO DAILY 08/19/20 09/08/20 History omega-3 fatty acids 1,000 mg 1,000 mg PO BID 08/19/20 09/08/20 History capsule omeprazole 40 mg capsule,delayed 40 mg PO DAILY 08/19/20 09/08/20 History release sertraline 100 mg tablet 100 mg PO HS 08/19/20 09/08/20 History fenofibrate 160 mg PO HS 09/08/20 09/08/20 History Current Medications: Active Medications Sodium Chloride (Normal Saline Iv) 500 mls @ 100 mls/hr IV CONT .Q5H VEENA Sedation/Anesthesia: No previous sedation/anesthesia problems (including family history). [facility]LY [facility] Past Medical History Medical History GERD (gastroesophageal reflux disease) Social History Social History Years smoked: 25 Smoking status: Former smoker Tobacco type: cigarettes Second hand tobacco smoke exposure: Yes Smoking end date: 06/24/19 Alcohol intake: unknown Substance use: never Substance use type: does not use Living arrangements: with family Additional living arrangements comments: LIVES W/ [place]NA [facility]AMP[place] Gender identity (if verbalized by the patient): Female Spiritual care concerns: No Mod Sed Physical Exam Physical Exam Pre Procedural Exam: Normal: Appearance, Throat, Airway, Lungs, Heart Size, Heart Rate, Heart Rhythm, Neuro Exam and Extremities Hours since solid foods: 12 Hours since liquid intake: 12 Internal Medicine - PN: Obj Da Vital Signs Vital Signs: Vital Signs - 24 hr 09/09/20 07:50 Temperature 36.3 C L Pulse Rate 76 Respiratory Rate 16 Blood Pressure 129/81 Pulse Oximetry 96 Meds/Results Medications: Active Medications Generic Name Dose Route Start Last Admin Trade Name Freq PRN Reason Stop Dose Admin Sodium Chloride 500 mls @ 100 mls/hr 09/09/20 07:00 Normal Saline Iv IV CONT .Q5H VEENA Labs CBC & Chem 7: 09/09/20 07:28 09/09/20 07:28 Labs: Laboratory Results - last 24 hr 09/09/20 09/09/20 09/09/20 07:28 07:28 07:28 WBC 9.1 RBC 4.75 Hgb 13.3 Hct 40.0 MCV 84.2 MCH 28.0 MCHC 33.3 RDW 12.9 Plt Count 302 MPV 8.2 Immature Gran % (Auto) 0.2 Neut % (Auto) 56.1 Lymph % (Auto) 33.6 Noble % (Auto) 6.7 Eos % (Auto) 2.5 Baso % (Auto) 0.9 Lymph # (Auto) 3.06 Noble # (Auto) 0.6 Eos # (Auto) 0.2 Baso # (Auto) 0.1 Abs Immat Gran (auto) 0.02 Absolute Neuts (auto) 5.1 Absolute Nucleated RBC 0.0 Nucleated RBC % 0.0 PT 13.4 INR 1.0 Sodium 140 Potassium 4.0 Chloride 104 Carbon Dioxide 26 Anion Gap 10 BUN 10 Creatinine 0.90 Estim Creat Clear Calc 65 Estimated GFR > 60 Glucose 122 H Calcium 9.6 ASA Classification/Sedation ASA Classification/Sedation ASA Class: II Emergent: No Risks: Risks, benefits and alternatives explained and patient/family accepted plan for sedation. Patient re-evaluated immediately prior to sed
--- NOTE | 2020-09-09 09:12 | P.PCNCC_ITS ---
Cardiac Cath Procedure Note Date of procedure:: 09/09/20 Performing physician:: Kobe Coker MD Indication:: Chest pain, abnormal stress test Brief clinical history:: this is a 40-year-old without previous cardiac history who has been experiencing episodes sharp chest pain for about 2 months. A stress electrocardiogram was reportedly abnormal with exercise-induced ST segment changes. Procedure Procedure performed:: left ventriculography coronary angiography Angio-Seal to right femoral artery Sedation/Medication given:: fentanyl 50 mg Versed 2 mg case start time 8:51 a.m. case end time 9:09 a.m. sedation provided by Karen Underwood RN, trained observer Access site:: right femoral artery Estimated blood loss:: 10/15 cc Procedure note:: patient was brought to the cardiac catheterization lab in the postabsorptive state where the right femoral triangle was prepped and draped in the usual sterile fashion. Anesthesia was provided with 1% lidocaine infiltrated locally. Using the modified Seldinger technique the femoral artery was punctured and a 5 Irish vascular sheath was placed. After this left heart catheterization was performed where a pigtail catheter was used to inject the left ventriculogram in the BORJA projection and to document left-sided hemodynamics. After this a standard 5 Irish FL4 catheter was used to engage and inject the left coronary artery. A standard 5 Irish JR4 catheter was used to engage and inject the right coronary artery. This any angiograms were reviewed. After this of arteriogram was done of the femoral artery through the sheath after which a 6 Irish Angio-Seal device was deployed with a good hemostatic result. There were no procedural complications she left the label drier with no evidence of a groin hematoma. Findings:: Hemodynamics: Central aortic pressure was 134 over 76 left ventricle 134/0 end-diastolic pressure of 14. No gradient was measured across the aortic valve upon pullback left ventricle: The LV is normal in size all segments contract appropriately there were no regional wall motion abnormalities. The ejection fraction 60%. The left main coronary artery is very short but nicely patent the left anterior descending is a medium caliber vessel extending down to around the apex the LAD and its branches are smooth and angiographically normal in appearance the circumflex is a medium caliber vessel giving rise to the marginal branches and the posterior branches as well as the left PDA. The circumflex is dominant to the posterior circulation. It is smooth and angiographically normal. The right coronary artery small in caliber and non dominant it is angiographically free of disease. Conclusion:: 1. Left coronary dominant circulation with no angiographic evidence of coronary disease 2. normal left ventricular systolic function 3. based on this data symptoms are not cardiac and stress test is a false- positive Kobe Coker MD [facility]
--- NOTE | 2020-09-09 12:53 | SUR.PHASEII ---
1215 D/C instructions reviewed with patient and pts fiance, questions answered. IV was d/c'd, cath intact, pressure applied. R groin dressing and site remained clean, dry, and intact, no signs of bleeding or hematoma, R pedal pulse strong and palpable. Pt transported via wheelchair to [facility] where her fiance transported her home in private vehicle.
== END 2020-09-09 12:30 | disposition home or self-care (01) ==
LOC: ANHCATHLAB 03:11 → ANHLAB 10:19 → ANHCATHLAB 10:54
PROVIDERS: PCP Family Medicine; Visit Provider Specialist
PROC: 4A023N7 Measurement of Cardiac Sampling and Pressure, Left Heart, Percutaneous Approach (ICD-10-PCS; CPT 93452; principal; 2020-09-09 08:30)
DX: R94.39 Abnormal result of other cardiovascular function study (principal); R07.9 Chest pain, unspecified; K21.9 Gastro-esophageal reflux disease without esophagitis; Z79.82 Long term (current) use of aspirin; Z87.891 Personal history of nicotine dependence
CPT/HCPCS: 36415; 80048; 85025; 85610; 93458; C1760; C1887; C1894; G0269; J1644; J2250; J3010; J7030; J7040

== ENCOUNTER 2020-10-08 13:30 | Outpatient (CLI) | payer OTHER, SELFPAY ==
--- NOTE | 2020-10-08 13:50 | ECHO_ITS ---
Patient Info Name: Debbi Zhao Age: 40 years : 1980 Gender: Female Ht: 65 in Wt: 170 lbs BSA: 1.90 m2 HR: 69 bpm BP: 124 / 81 mmHg Technical Quality: Fair Exam Date: 10/08/2020 1:59 PM Exam Location: [facility] Patient Status: Outpatient Admit Date: 10/08/2020 Staff Ordering Physician: Christopher Davis DO Patient Advocate: Saima Quintana RDCS Attending Provider: Christopher Davis DO Referring Physician: Ryan ABERNATHY; Exam Type: CA echo doppler color flow Study Info Indications R06.00 - Dyspnea, unspecified Complete two-dimensional, color flow and Doppler transthoracic echocardiogram is performed. Summary 1. Complete two-dimensional, color flow and Doppler transthoracic echocardiogram is performed. 2. Left ventricular chamber dimension is normal. 3. Left ventricular systolic function is normal, estimated at 55-60%. 4. The left ventricular diastolic function is grade II diastolic dysfunction. 5. E/e' 11 is mildly elevated. 6. Global longitudinal strain is normal at -18.7%. 7. Left atrial chamber dimension is mildly enlarged. 8. No pulmonary hypertension, estimated pulmonary arterial systolic pressure is 31 mmHg. Left Ventricle E/e' 11 is mildly elevated. Global longitudinal strain is normal at -18.7%. Left ventricular chamber dimension is normal. Left ventricular systolic function is normal, estimated at 55-60%. The left ventricular diastolic function is grade II diastolic dysfunction. Right Ventricle Right ventricular systolic function is normal and with normal TAPSE 2.1 cm. Right ventricular chamber dimension is normal. Left Atria Left atrial chamber dimension is mildly enlarged. Right Atria Right atrial chamber dimension is normal. Aortic Valve The aortic valve is trileaflet. There is no aortic valve stenosis. There is no aortic valve regurgitation. Pulmonic Valve There is no pulmonic regurgitation. Mitral Valve There is no mitral valve stenosis. There is no mitral valve regurgitation. Tricuspid Valve There is no tricuspid valve regurgitation. No pulmonary hypertension, estimated pulmonary arterial systolic pressure is 31 mmHg. Pericardium/Pleural There is no pericardial effusion. Inferior Vena Cava Normal inferior vena cava with >50% collapse upon inspiration consistent with normal right atrial pressure, 5 mmHg. Aorta The aortic root size at the sinus of Valsalva is normal. Left Ventricular Outflow Tract Name Value Normal LVOT 2D LVOT Diameter 2.0 cm LVOT Doppler LVOT Peak Gradient 5 mmHg LVOT Mean Gradient 3 mmHg LVOT VTI 21 cm LVOT VTI/AV VTI Ratio 0.9 LVOT Stroke Volume 65 ml LVOT CO 4.8 l/min LVOT CI 2.5 l/min/m2 Pulmonic Valve Name Value Normal RV
== END 2020-10-08 13:31 | disposition home or self-care (01) ==
PROVIDERS: PCP Family Medicine; Visit Provider Internal Medicine Cardiovascular Disease
DX: R06.00 Dyspnea, unspecified (principal)
CPT/HCPCS: 93306

== ENCOUNTER 2020-10-25 13:42 | Emergency (ER) | payer OTHER, SELFPAY ==
--- NOTE | ~2020-10-25 | XR_ITS ---
EXAMINATION: XR ankle LT min 3V DATE: 10/25/2020 13:59 INDICATION: Left ankle pain TECHNIQUE: Anteroposterior, lateral, mortise, and additional oblique view of the ankle were obtained. COMPARISON: None. FINDINGS: There is no fracture, dislocation, or subluxation. The bones, soft tissues, and joint space s are normal. IMPRESSION: 1. No acute osseous abnormality. Reviewed, dictated and finalized at location A.
[2020-10-25 13:45] VITALS: BP 144/92; PULSE 78; RESP 16; TEMP 36.4; O2SAT 100
--- NOTE | 2020-10-25 14:15 | ED.GENADULT ---
HPI - General Adult General Chief complaint: Extremity Injury, Lower Stated complaint: left ankle pain Time Seen by Provider: 10/25/20 13:51 Source: patient and RN notes reviewed Mode of arrival: ambulatory Limitations: no limitations History of Present Illness HPI narrative: Patient is a 40-year-old female who presents with left ankle pain after rolling the ankle patient notes aching pain worse with activity and movement patient misstepped injuring the ankle she does not appear distressed upon arrival has not taken anything for symptoms denies other complaints or injuries Related Data Home Medications Medication Instructions Recorded Confirmed aspirin 81 mg tablet,delayed 81 mg PO DAILY 08/19/20 09/17/20 release cholecalciferol (vitamin D3) 50 50 mcg PO HS 08/19/20 09/17/20 mcg (2,000 unit) capsule ezetimibe 10 mg tablet 10 mg PO DAILY 08/19/20 09/17/20 omega-3 fatty acids 1,000 mg 1,000 mg PO BID 08/19/20 09/17/20 capsule omeprazole 40 mg capsule,delayed 40 mg PO DAILY 08/19/20 09/17/20 release sertraline 100 mg tablet 100 mg PO HS 08/19/20 09/17/20 fenofibrate 160 mg PO HS 09/08/20 09/17/20 Allergies Allergy/AdvReac Type Severity Reaction Status Date / Time amoxicillin Allergy Gastrointestinal Verified 09/17/20 13:02 Upset chicken derived Allergy Swelling Verified 09/17/20 13:02 of Lip/Tongue/Throat Penicillins Allergy Gastrointestinal Verified 09/17/20 13:02 Upset Npqzmwj-Mwj-Rdo Reductase AdvReac Muscle Pain Verified 09/17/20 13:02 Inhibitor Review of Systems Review of Systems: All systems reviewed & are unremarkable except as noted in HPI and below [facility] Past Medical History Medical History GERD (gastroesophageal reflux disease) Social History Social History Years smoked: 25 Smoking status: Former smoker Tobacco type: cigarettes Second hand tobacco smoke exposure: Yes Smoking end date: 06/24/19 Alcohol intake: unknown Substance use: never Substance use type: does not use Additional living arrangements comments: LIVES W/ [place], DIG[place] Gender identity (if verbalized by the patient): Female Spiritual care concerns: No Exam Narrative: Exam Narrative: GENERAL: Well-appearing, well-nourished, and in no acute distress. HEAD: Normocephalic, atraumatic. EYES: PERRLA and EOMI. ENT: Nares clear, no rhinorrhea or epistaxis. Mucous membranes moist. CHEST: Clear to auscultation. No respiratory distress. No wheezes rales or rhonchi HEART: Regular rate and rhythm. No murmur heard. Normal peripheral pulses. EXTREMITIES: Normal range of motion. No edema. Tenderness of the left lateral ankle no deformity noted SKIN: Warm, dry, no rash. NEURO: No focal deficits. Alert and oriented x3. Neurovascularly intact. Capillary refill less than 2 seconds PSYCH: Normal mood and affect. Course Course Emergency Course: Patient evaluated emergency department no concerning findings will be discharged home with a strain Vital Signs Vital signs: Vital Signs Temperature 97.6 F 10/25/20 13:45 Pulse Rate 78 10/25/20 13:45 Respiratory Rate 16 10/25/20 13:45 Blood Pressure 144/92 H 10/25/20 13:45 Pulse Oximetry 100 10/25/20 13:45 Temperature 97.6 F 10/25/20 13:45 Pulse Rate 78 10/25/20 13:45 Respiratory Rate 16 10/25/20 13:45 Blood Pressure 144/92 H 10/25/20 13:45 Pulse Oximetry 100 10/25/20 13:45 Medical Decision Making MDM Narrative Medical decision making narrative: Patients injury or pain is consistent with musculoskeletal etiology. No signs of neurological or vascular compromise on exam. Compartments and tisues are soft without signs of compartment syndrome. Pain is felt appropriate for further evaluation on an outpatient basis. Vital Signs Vital Signs: Vital Signs Temperature 97.6 F 10/25/20 13:45
== END 2020-10-25 14:29 | disposition home or self-care (01) ==
PROVIDERS: Emergency Provider Emergency Medicine; PCP Family Medicine
DX: S93.402A Sprain of unspecified ligament of left ankle, initial encounter (principal); K21.9 Gastro-esophageal reflux disease without esophagitis; X50.0XXA Overexertion from strenuous movement or load, initial encounter
CPT/HCPCS: 73610; 99283

== ENCOUNTER 2020-11-30 13:50 | Emergency (ER) | payer OTHER, SELFPAY ==
--- NOTE | ~2020-11-30 | XR_ITS ---
EXAMINATION: XR shoulder LT min 2V DATE: 11/30/2020 14:42 INDICATION: Left shoulder pain. TECHNIQUE: 4 views of left shoulder were obtained. COMPARISON: None. FINDINGS: Bone alignment is normal. No fracture. Joint spaces are well maintained. IMPRESSION: 1. Normal left shoulder. Reviewed, dictated and finalized at location A. IMPRESSION: 1. Normal left shoulder.
[2020-11-30 14:24] VITALS: BP 140/72; PULSE 78; RESP 18; TEMP 36.7; O2SAT 99
[2020-11-30 17:57] VITALS: BP 146/87; PULSE 69; RESP 16; O2SAT 98
--- NOTE | 2020-11-30 18:50 | ED.GENADULT ---
HPI - General Adult General Chief complaint: Extremity Injury, Upper Stated complaint: left shoulder pain x 2 weeks Time Seen by Provider: 11/30/20 17:52 Source: patient and RN notes reviewed Mode of arrival: ambulatory Limitations: no limitations History of Present Illness HPI narrative: Patient is a 40-year-old female who presents with left shoulder pain for several days denies injury or trauma pain is localized to the rotator cuff musculature worse with movement and activity patient denies radicular symptoms or paresthesias presents in no distress has not taken anything for symptom Related Data Home Medications Medication Instructions Recorded Confirmed aspirin 81 mg tablet,delayed 81 mg PO DAILY 08/19/20 09/17/20 release cholecalciferol (vitamin D3) 50 50 mcg PO HS 08/19/20 09/17/20 mcg (2,000 unit) capsule ezetimibe 10 mg tablet 10 mg PO DAILY 08/19/20 09/17/20 omega-3 fatty acids 1,000 mg 1,000 mg PO BID 08/19/20 09/17/20 capsule omeprazole 40 mg capsule,delayed 40 mg PO DAILY 08/19/20 09/17/20 release sertraline 100 mg tablet 100 mg PO HS 08/19/20 09/17/20 fenofibrate 160 mg PO HS 09/08/20 09/17/20 Allergies Allergy/AdvReac Type Severity Reaction Status Date / Time amoxicillin Allergy Gastrointestinal Verified 09/17/20 13:02 Upset chicken derived Allergy Swelling Verified 09/17/20 13:02 of Lip/Tongue/Throat Penicillins Allergy Gastrointestinal Verified 09/17/20 13:02 Upset Fcfpwuy-Rln-Xev Reductase AdvReac Muscle Pain Verified 09/17/20 13:02 Inhibitor Review of Systems Review of Systems: All systems reviewed & are unremarkable except as noted in HPI and below [facility] Past Medical History Medical History GERD (gastroesophageal reflux disease) Social History Social History Years smoked: 25 Smoking status: Former smoker Tobacco type: cigarettes Second hand tobacco smoke exposure: Yes Smoking end date: 06/24/19 Alcohol intake: unknown Substance use: never Substance use type: does not use Additional living arrangements comments: LIVES W/ [place] Gender identity (if verbalized by the patient): Female Spiritual care concerns: No Exam Narrative: GENERAL: Well-appearing, well-nourished, and in no acute distress. HEAD: Normocephalic, atraumatic. EYES: PERRLA and EOMI. ENT: Nares clear, no rhinorrhea or epistaxis. Mucous membranes moist. CHEST: Clear to auscultation. No respiratory distress. No wheezes rales or rhonchi HEART: Regular rate and rhythm. No murmur heard. . EXTREMITIES: Normal range of motion. No edema. Tenderness of the left rotator cuff musculature no deformity SKIN: Warm, dry, no rash. NEURO: No focal deficits. Alert and oriented x3. Neurovascularly intact. Cranial nerves II through XII grossly intact PSYCH: Normal mood and affect. Course Course Emergency Course: Patient evaluated in the emergency department no distress aware of case findings treatment plan and diagnosis agreeing to follow-up as instructed given reasons to return and orthopedic follow-up Vital Signs Vital signs: Vital Signs Temperature 98.1 F 11/30/20 14:24 Pulse Rate 78 11/30/20 14:24 Respiratory Rate 18 11/30/20 14:24 Blood Pressure 140/72 11/30/20 14:24 Pulse Oximetry 99 11/30/20 14:24 Temperature 98.1 F 11/30/20 14:24 Pulse Rate 69 11/30/20 17:57 Respiratory Rate 16 11/30/20 17:57 Blood Pressure 146/87 H 11/30/20 17:57 Pulse Oximetry 98 11/30/20 17:57 Medical Decision Making MDM Narrative Medical decision making narrative: Patients injury or pain is consistent with musculoskeletal etiology. No signs of neurological or vascular compromise on exam. Compartments and tisues are soft without signs of compartment syndrome. Pain is felt appropriate for further evaluation on an outpatient basis. Anna
[2020-11-30 19:16] VITALS: BP 136/79; PULSE 59; RESP 16; TEMP 36.8; O2SAT 100
== END 2020-11-30 19:18 | disposition home or self-care (01) ==
PROVIDERS: Emergency Provider Emergency Medicine; PCP Family Medicine
DX: M25.512 Pain in left shoulder (principal); K21.9 Gastro-esophageal reflux disease without esophagitis; Z87.891 Personal history of nicotine dependence
CPT/HCPCS: 73030; 99283

== ENCOUNTER 2020-12-11 09:18 | Outpatient (CLI) | payer OTHER, SELFPAY ==
[2020-12-11 10:52] LABS: Cholesterol 134 mg/dL (0-200); HDL Direct 27 mg/dL; Triglycerides 176 mg/dL (<150)
[2020-12-11 11:03] LABS: LDL Cholesterol Direct 61 mg/dL
== END 2020-12-11 09:19 | disposition home or self-care (01) ==
PROVIDERS: PCP Family Medicine; Visit Provider Family Medicine
DX: E78.5 Hyperlipidemia, unspecified (principal)
CPT/HCPCS: 36415; 80061

== ENCOUNTER 2021-02-19 09:00 | Outpatient (RCR) | payer OTHER, SELFPAY ==
[2021-01-25 08:05] VITALS: BP_SYST 155
--- NOTE | 2021-01-25 11:49 | PTOPEVAL ---
PHYSICAL THERAPY EVALUATION AND PLAN OF CARE 01-25-21 Thank you for referring Debbi Zhao to [facility].? Jhoana is scheduled to be seen for therapy? 2 x/week for 4 weeks. Please review, sign, date and return this plan of care BLANCHE. I agree with and certify that the following plan of care is medically necessary. 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 Hx Hypercholesterolemia Yes Hx Palpitations Yes Respiratory History Hx Asthma Yes Gastrointestinal History Hx Cholecystectomy Yes Hx Gastroesophageal Reflux Disease Yes Hx Hernia Yes Genitourinary History Hx Genitourinary Disorders No Significant History Musculoskeletal History Hx Back Pain Yes Hematological History Hx Blood Transfusions Yes Endocrine History Hx Endocrine Disorders No Significant History HEENT History Hx Dental Problems Yes Integumentary History Hx Skin Disorders No Significant History Reproductive History Hx Section Yes Psychosocial History Hx Anxiety Yes Hx Depression Yes Pain History History of Any Previous or Ongoing No Significant History Instance of Pain Anesthesia History Hx Anesthesia Reactions No Significant History Evaluation Information Problem Diagnosis L shoulder tendonitis Onset Nov 2020 Subjective Information gradual increase in shoulder Query Text:As Reported By Patient/ pain, no trauma or injury to Family shoulder; saw ortho, had injection and helped little with the pain, not as sharp as it was; no restrictions for work, doing full work duties Diagnostic Tests X-Rays For This Problem No MRI For This Problem No Previous Treatments Previous Treatments For This Problem no PT for shoulder Prior Level of Function Activity Level (Last 3 Months) 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
--- NOTE | 2021-02-23 07:40 | PCPTNOTE ---
Patient called & cancelled scheduled appointment this date due to having to work.
--- NOTE | 2021-03-10 13:48 | PCPTNOTE ---
PHYSICAL THERAPY DISCHARGE 03-10-21 Attending Provider: NOEMI Damian Patient:Debbi Zhao Date of :1980 Debbi has received 5 PT sessions, from January 25 to , for the diagnosis L shoulder pain. She has not returned for any further treatments since 02/19/2021, therefore she will be discharged at this time. The goals were not assessed. Thank you for referring Debbi to [facility]. Please review, sign, date and return this discharge summary BLANCHE. I have been updated about the patient's current status and I agree with discharge from the above service at this time. Referring Physician Date
== END 2021-03-11 15:23 | disposition home or self-care (01) ==
LOC: ANHPT 09:00
PROVIDERS: PCP Family Medicine; Visit Provider Nurse Practitioner Family
DX: M75.82 Other shoulder lesions, left shoulder (principal)
CPT/HCPCS: 97014; 97110; 97140; 97161; G0283

== ENCOUNTER 2021-03-26 09:36 | Outpatient (CLI) | payer OTHER, SELFPAY ==
[2021-03-26 10:25] LABS: Alanine Aminotransferase 52 U/L (4-35); Albumin Level 4.3 g/dL (3.5-5.1); Alkaline Phosphatase 38 U/L (38-126); Anion Gap 10 mmol/L (8-16); Aspartate Amino Transferase 44 U/L (14-36); Bilirubin,Total 0.4 mg/dL (0.2-1.3); Blood Urea Nitrogen 12 mg/dL (7-17); Calcium 9.8 mg/dL (8.4-10.2); Carbon Dioxide 26 mmol/L (22-30); Chloride 105 mmol/L (98-107); Cholesterol 129 mg/dL (0-200); Estimated Glomerular Filt Rate > 60; Glucose 113 mg/dL (65-110); HDL Direct 28 mg/dL; Sodium 141 mmol/L (137-145); Triglycerides 157 mg/dL (<150)
[2021-03-26 10:37] LABS: LDL Cholesterol Direct 63 mg/dL
== END 2021-03-26 09:37 | disposition home or self-care (01) ==
LOC: ANHLAB 09:37
PROVIDERS: PCP Family Medicine; Visit Provider Internal Medicine Cardiovascular Disease
DX: E78.5 Hyperlipidemia, unspecified (principal)
CPT/HCPCS: 36415; 80053; 80061

== ENCOUNTER 2021-04-08 14:12 | Emergency (ER) | payer OTHER, SELFPAY ==
--- NOTE | ~2021-04-08 | XR_ITS ---
EXAMINATION: XR chest 1V portable EXAM DATE: 04/08/2021 16:12 INDICATION: Cough, SOB, COVID exposure. TECHNIQUE: Portable AP frontal chest x-ray was obtained. Comparison is made to prior examination from 07/03/2020. FINDINGS: The lungs are clear. There are no pleural effusions. The cardiomediastinal silhouette is within normal limits. There is no pneumothorax suspected. The bones and soft tissues are unremarkab le. IMPRESSION: No acute cardiopulmonary findings. Follow-up can be obtained if symptoms persist. Reviewed, dictated and finalized at location B. ER FEEDER IMPRESSION: No acute cardiopulmonary findings. Follow-up can be obtained if sym ptoms persist.
[2021-04-08 14:14] VITALS: BP 162/77; PULSE 100; RESP 14; TEMP 36.1; O2SAT 100
--- NOTE | 2021-04-08 15:50 | ED.GENADULT ---
HPI - General Adult General Chief complaint: Upper Respiratory Infection Stated complaint: blisters in mouth, nausea, covid exposure Time Seen by Provider: 04/08/21 15:00 History of Present Illness HPI narrative: Patient is a 41-year-old female who presents ER with concerns for Covid exposure. Last week she began having some blisters on the roof of her mouth. She saw her PCP who placed her on Valtrex. Patient has been having sinus congestion with sore throat and cough. 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 Last week he had allergies that apparently progressed into her symptoms and he tested positive for Covid yesterday after she was exposed to him yesterday as well. She is concerned her symptoms may be related to this. She has no loss of taste or smell. Patient's blisters have improved on the Valtrex. They were only on the roof her mouth and there is nothing extraoral. Related Data Home Medications Medication Instructions Recorded Confirmed aspirin 81 mg tablet,delayed 81 mg PO DAILY 08/19/20 09/17/20 release cholecalciferol (vitamin D3) 50 50 mcg PO HS 08/19/20 09/17/20 mcg (2,000 unit) capsule ezetimibe 10 mg tablet 10 mg PO DAILY 08/19/20 09/17/20 omega-3 fatty acids 1,000 mg 1,000 mg PO BID 08/19/20 09/17/20 capsule omeprazole 40 mg capsule,delayed 40 mg PO DAILY 08/19/20 09/17/20 release sertraline 100 mg tablet 100 mg PO HS 08/19/20 09/17/20 valacyclovir 500 mg PO DAILY 04/08/21 04/08/21 Allergies Allergy/AdvReac Type Severity Reaction Status Date / Time amoxicillin Allergy Gastrointestinal Verified 04/08/21 15:03 Upset chicken derived Allergy Swelling Verified 04/08/21 15:03 of Lip/Tongue/Throat Penicillins Allergy Gastrointestinal Verified 04/08/21 15:03 Upset Utewrya-YCN-VbX Reductase AdvReac Muscle Pain Verified 04/08/21 15:03 Inhibitor [Vmunpyi-Keb-Mvw Reductase Inhibitor] Review of Systems Review of Systems: All systems reviewed & are unremarkable except as noted in HPI and below Constitutional: Constitutional: Denies chills, Denies fever(s) and Denies weakness ENT: Reports nasal congestion and Reports sore throat Respiratory: Respiratory: Reports cough, Denies dyspnea and Denies wheezing Gastrointestinal: Gastrointestinal: Denies abdominal pain, Denies nausea and Denies vomiting PMFSH Past Medical History Medical History Abnormal stress electrocardiogram test CHUNG (dyspnea on exertion) Dyslipidemia GERD (gastroesophageal reflux disease) Left shoulder pain Rotator cuff tendonitis Social History Social History Years smoked: 25 Smoking status: Former smoker Tobacco type: cigarettes Second hand tobacco smoke exposure: Yes Smoking end date: 06/24/19 Alcohol intake: unknown Substance use: never Substance use type: does not use Additional living arrangements comments: LIVES W/ [facility] Gender identity (if verbalized by the patient): Female Spiritual care concerns: No Exam Narrative: GENERAL: Well-appearing, well-nourished, and in no acute distress. HEAD: Normocephalic, atraumatic. ENT: Mucous membranes moist. No palatal blisters. Poor dentition with discomfort behind tooth #9 which is where patient reported her blisters. No fluctuant abscess. No facial swelling. NECK: Supple. CHEST: Clear to auscultation. No respiratory distress. HEART: Regular rate and rhythm. Normal peripheral pulses. EXTREMITIES: Normal range of motion. No edema. NEURO: Alert and oriented x3. PSYCH: Normal mood and affect. Course Course Emergency Course: Chest x-ray unremarkable. Discharge home. Discussed return precautions and self-isolation. Vital Signs Vital signs: Vital Signs Temperature 97.0 F L 04/08/21 14:14 Pulse Rate 100 04/08/21 14:14 Respiratory Rate 14 04/08/21
[2021-04-08 16:54] VITALS: BP 126/85; PULSE 78; RESP 18; O2SAT 100
[2021-04-12 21:01] LABS: SARS-CoV-2 RNA PCR Negative
== END 2021-04-08 16:55 | disposition home or self-care (01) ==
PROVIDERS: Emergency Provider Emergency Medicine; PCP Family Medicine
DX: R11.0 Nausea (principal); Z20.822 Contact with and (suspected) exposure to COVID-19; Z87.891 Personal history of nicotine dependence
CPT/HCPCS: 71045; 99283; C9803; U0003; U0005

== ENCOUNTER 2021-05-04 13:21 | Outpatient (CLI) | payer OTHER, SELFPAY | END 2021-05-04 13:22 | disposition home or self-care (01) | LOC: ANHLAB 13:24 | PROVIDERS: PCP Family Medicine; Visit Provider Family Medicine | DX: T78.40XA Allergy, unspecified, initial encounter (principal) | CPT/HCPCS: 36415; 82785; 86003 ==

== ENCOUNTER 2021-05-16 10:04 | Emergency (ER) | payer OTHER, SELFPAY ==
--- NOTE | ~2021-05-16 | XR_ITS ---
XR chest 2V DATE: 05/16/2021 10:50 INDICATION: Cough. Body aches. Headache, diarrhea. TECHNIQUE: 2 views COMPARISON: 04/08/2021 portable AP chest FINDINGS: Normal heart size. No hilar or mediastinal enlargement. No pulmonary infiltrate or consolidation, pleural effusion or pulmonary vascular congestion or pneumo thorax. Surgical clips, right upper quadrant, consistent with cholecystectomy. Included skeletal structures a re unremarkable. IMPRESSION: No active cardiopulmonary disease Reviewed, dictated and finalized at location A. CARE CONSULTANT
[2021-05-16 10:07] VITALS: BP 146/74; PULSE 77; RESP 20; TEMP 36.9; O2SAT 100
--- NOTE | 2021-05-16 10:42 | ECG_ITS ---
Measurements Intervals [place] Rate: 69 P: 15 AK: 138 QRS: 38 QRSD: 81 T: 11 QT: 353 QTc: 380 Interpretive Statements SINUS RHYTHM NORMAL ECG Electronically Signed On 05-16-2021 13:36:59 [employer] by Christopher Davis D.O.
--- NOTE | 2021-05-16 10:55 | ED.GENADULT ---
HPI - General Adult General Chief complaint: Upper Respiratory Infection Stated complaint: [place], diarrhea, body aches Time Seen by Provider: 05/16/21 10:25 Source: patient Mode of arrival: ambulatory Limitations: no limitations History of Present Illness HPI narrative: Patient presents for evaluation of sick symptoms. She states that the majority of her symptoms started today. She has fatigue, generalized body aches, headache that she describes as pounding , chills, fever, throat irritation, heaviness on the chest with a mild nonproductive cough, nausea without vomiting and diarrhea. 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 She attempted to go into work today and was sent home due to her symptoms. No personal hx of COVID. She has received both doses of her [employer] COVID vaccination but has not received her booster. She has also received a flu shot this year. She does not smoke. No additional complaints or concerns. Related Data Home Medications Medication Instructions Recorded Confirmed aspirin 81 mg tablet,delayed 81 mg PO DAILY 08/19/20 09/17/20 release cholecalciferol (vitamin D3) 50 50 mcg PO HS 08/19/20 09/17/20 mcg (2,000 unit) capsule ezetimibe 10 mg tablet 10 mg PO DAILY 08/19/20 09/17/20 omega-3 fatty acids 1,000 mg 1,000 mg PO BID 08/19/20 09/17/20 capsule omeprazole 40 mg capsule,delayed 40 mg PO DAILY 08/19/20 09/17/20 release sertraline 100 mg tablet 100 mg PO HS 08/19/20 09/17/20 valacyclovir 500 mg PO DAILY 04/08/21 04/08/21 Allergies Allergy/AdvReac Type Severity Reaction Status Date / Time amoxicillin Allergy Gastrointestinal Verified 05/16/21 10:28 Upset chicken derived Allergy Swelling Verified 05/16/21 10:28 of Lip/Tongue/Throat Penicillins Allergy Gastrointestinal Verified 05/16/21 10:28 Upset Bbofrve-NSF-JsN Reductase AdvReac Muscle Pain Verified 05/16/21 10:28 Inhibitor [Djrfrou-Lfw-Yke Reductase Inhibitor] Review of Systems Review of Systems: CONSTITUTIONAL: Reports fever, chills, and fatigue EYES: Denies visual changes, redness, or discharge. ENT: Reports irritation of the throat. Denies rhinorrhea, congestion, or otalgia. CARDIOVASCULAR: Denies chest pain, palpitations, or edema. RESPIRATORY: Reports mild nonproductive cough. Denies SOB. GASTROINTESTINAL: Reports nausea without vomiting. Reports diarrhea. Denies abdominal pain GENITOURINARY: Denies dysuria or hematuria. SKIN: Denies rash or itching. MUSCULOSKELETAL: Reports generalized body aches. NEUROLOGIC: Reports headache. Denies numbness, dizziness, or weakness. PSYCHIATRIC: Denies anxiety or depression. [facility] Past Medical History Medical History (Updated 05/16/21 @ 13:26 by NOEMI Toure, ) Abnormal stress electrocardiogram test CHUNG (dyspnea on exertion) Dyslipidemia GERD (gastroesophageal reflux disease) Left shoulder pain Rotator cuff tendonitis Surgical History Surgical History History of cholecystectomy History of hysterectomy Family History Family History Father History of lung cancer Mother Hypertension Social History Social History Years smoked: 25 Smoking status: Former smoker Tobacco type: cigarettes Second hand tobacco smoke exposure: Yes Smoking end date: 06/24/19 Alcohol intake: unknown Substance use: never Substance use type: does not use Additional living arrangements comments: LIVES W/ [facility] Gender identity (if verbalized by the patient): Female Spiritual care concerns: No Exam Narrative: GENERAL: Well-appearing, well-nourished, and in no acute distress. HEAD: Normocephalic, atraumatic. EYES: PERRLA and EOMI. ENT: Nares clear, no rhinorrhea or ep
[2021-05-16] MEDS: KETOROLAC (*BKC) 60 MG/2 ML VIAL IM (11:01)
[2021-05-16 12:05] LABS: SARS-CoV-2 RNA PCR Negative
[2021-05-16 13:43] VITALS: BP 142/76; PULSE 87; RESP 16; O2SAT 98
== END 2021-05-16 13:44 | disposition home or self-care (01) ==
PROVIDERS: Emergency Provider Nurse Practitioner; PCP Family Medicine
DX: B34.9 Viral infection, unspecified (principal); Z20.822 Contact with and (suspected) exposure to COVID-19; E78.5 Hyperlipidemia, unspecified; K21.9 Gastro-esophageal reflux disease without esophagitis; Z87.891 Personal history of nicotine dependence; Z77.22 Contact with and (suspected) exposure to environmental tobacco smoke (acute) (chronic); Z79.82 Long term (current) use of aspirin
CPT/HCPCS: 71046; 87804; 93005; 96372; 99283; C9803; J1885; U0003; U0005

== ENCOUNTER 2021-09-28 14:40 | Outpatient (CLI) | payer OTHER, SELFPAY ==
--- NOTE | ~2021-09-28 | MM_ITS ---
EXAMINATION: MM screening sujatha BI w ant HISTORY: Screening mammogram TECHNIQUE: Craniocaudal and mediolateral oblique 3-D tomosynthesis images were obtained and synthetic 2-D images were generated. CAD analysis was submitted and interpreted. COMPARISON: 01/01/2020 BREAST PARENCHYMAL COMPOSITION: The breasts are heterogeneously dense, which may obscure small masses . FINDINGS: There is no suspicious mass, calcification, or architectural distortion to suggest malignan cy in either breast. There has been no suspicious interval change. IMPRESSION: 1. No mammographic evidence of malignancy. 2. Recommend routine screening mammography in one year. BI-RADS Category 1: Negative Reviewed, dictated and finalized at location A.
== END 2021-09-28 14:41 | disposition home or self-care (01) ==
LOC: ANHIMG 14:41
PROVIDERS: PCP Nurse Practitioner Family; Visit Provider Nurse Practitioner Family
DX: Z12.31 Encounter for screening mammogram for malignant neoplasm of breast (principal)
CPT/HCPCS: 77063; 77067

== ENCOUNTER 2022-03-19 17:27 | Emergency (ER) | payer OTHER, SELFPAY ==
[2022-03-19 17:31] VITALS: BP 136/76; PULSE 65; RESP 18; TEMP 36.4; O2SAT 100
--- NOTE | 2022-03-19 19:07 | ED.EYEPROB ---
HPI - Eye Problem General Chief complaint: Eye Problems Stated complaint: RIGHT eye pain Time Seen by Provider: 03/19/22 18:07 Source: patient Mode of arrival: ambulatory Limitations: no limitations History of Present Illness HPI Narrative: Patient is a 42-year-old female who presents the ED with report of right eye discomfort, drainage, redness. Patient reports having redness and discomfort in her right eye for the past 2 days. She has had watery discharge from the eye. This morning, she woke up and states her right eye was matted shut. She denies foreign body sensation, vision changes, fever, cough or cold sx's, symptoms in left eye. She does wear contacts. Related Data Home Medications Medication Instructions Recorded Confirmed cholecalciferol (vitamin D3) 50 50 mcg PO HS 08/19/20 09/22/21 mcg (2,000 unit) capsule omega-3 fatty acids 1,000 mg 1,000 mg PO BID 08/19/20 09/22/21 capsule omeprazole 40 mg capsule,delayed 40 mg PO DAILY 08/19/20 09/22/21 release Allergies Allergy/AdvReac Type Severity Reaction Status Date / Time amoxicillin Allergy Gastrointestinal Verified 03/19/22 18:16 Upset chicken derived Allergy Swelling Verified 03/19/22 18:16 of Lip/Tongue/Throat Penicillins Allergy Gastrointestinal Verified 03/19/22 18:16 Upset Nnjaunt-FYU-KqX Reductase AdvReac Muscle Pain Verified 03/19/22 18:16 Inhibitor [Yuglooi-Ufn-Tuk Reductase Inhibitor] Review of Systems Review of Systems: CONSTITUTIONAL: Denies fever, chills, or sweats. EYES: Reports redness, discharge, discomfort to right eye. Denies visual changes. ENT: Denies rhinorrhea, congestion, sore throat. CARDIOVASCULAR: Denies chest pain. RESPIRATORY: Denies cough or dyspnea. GASTROINTESTINAL: Denies abdominal pain, nausea, vomiting. All systems reviewed & are unremarkable except as noted in HPI and below PMFSH Past Medical History Medical History Abnormal stress electrocardiogram test DJD of AC (acromioclavicular) joint CHUNG (dyspnea on exertion) Dyslipidemia GERD (gastroesophageal reflux disease) Left shoulder pain Rotator cuff tendonitis Surgical History Surgical History History of cholecystectomy History of hysterectomy Family History Family History Father History of lung cancer Mother Hypertension Social History Social History Years smoked: 25 Smoking status: Former smoker Tobacco type: cigarettes Second hand tobacco smoke exposure: Yes Smoking end date: 06/24/19 Alcohol intake: unknown Substance use: never Substance use type: does not use Additional living arrangements comments: LIVES W/ [facility] Gender identity (if verbalized by the patient): Female Spiritual care concerns: No Exam Narrative: GENERAL: Well appearing, well-nourished, non-toxic, in no acute distress. HEAD: Normocephalic, atraumatic. EYES: PERRLA, EOMI, no pain with extra ocular movements. Diffuse conjunctival injection to R eye. Watery drainage from R eye. No purulent drainage. Normal L eye. No chemosis bilaterally. No obvious FB. No periorbital tenderness or swelling. NECK: Supple. No adenopathy, no masses. RESPIRATORY: Airway patent, respirations nonlabored. CARDIOVASCULAR: Regular rate and rhythm without murmurs, rubs, or gallops. Peripheral pulses 2+ and equal bilaterally. MUSCULOSKELETAL: Moves all extremities. Strength/ROM intact without gross deformities. SKIN: Warm, dry, normal color. No rashes. NEURO: A&O X3. Speech clear. Cranial nerves II-XII grossly intact. Steady gait. No ataxic movements. PSYCHIATRIC: Appropriate mood and affect. Normal interaction. Course Vital Signs Vital signs: Vital Signs Temperature 97.5 F L 03/19/22 17:31 Pulse
[2022-03-19] MEDS: OFLOXACIN 0.3% OPHTH SOLN 5 ML BTL 1 DROP RIGHT EYE (20:27)
== END 2022-03-19 20:34 | disposition home or self-care (01) ==
PROVIDERS: Emergency Provider Physician Assistant; PCP Nurse Practitioner Family
DX: H10.31 Unspecified acute conjunctivitis, right eye (principal); E78.5 Hyperlipidemia, unspecified; K21.9 Gastro-esophageal reflux disease without esophagitis; M19.019 Primary osteoarthritis, unspecified shoulder; Z90.710 Acquired absence of both cervix and uterus; Z87.891 Personal history of nicotine dependence
CPT/HCPCS: 99283; A9270

== ENCOUNTER 2023-02-04 19:37 | Emergency (ER) | payer OTHER, SELFPAY ==
--- NOTE | ~2023-02-04 | CT_ITS ---
EXAMINATION: CT soft tissue neck w con DATE: 02/04/2023 21:58 INDICATION: Hoarseness and painful left-sided neck swelling/lump TECHNIQUE: Computed tomography (CT) of the neck was performed with 75 mL Omnipaque-350 intravenous co ntrast. Automated exposure control and iterative reconstruction technique were employed. The dose-davis gth product was 531.39 mGy-cm. COMPARISON: None FINDINGS: Orbits are normal. The paranasal sinuses are clear. Mastoid air cells, middle ear cavities and visual ized portions of the paranasal sinuses are clear. Submandibular and parotid glands are symmetric. Thy roid gland is unremarkable. There are mildly prominent but still normal-sized lymph nodes in the bila teral submandibular regions, level 2 jugular chains and at and posterior to the left parotid gland wh ich are likely reactive. No masses or abnormal fluid collection/abscess identified. The vasculature is patent and normal in caliber. Airway is unremarkable. Superior mediastinum is unremarkable. Visual ized upper lungs are clear. Mild cervical spondylosis. IMPRESSION: 1. Likely reactive mild bilateral cervical lymphadenopathy. No abnormal masses or fluid collections i dentified. Reviewed, dictated and finalized at location A. IMPRESSION: 1. Likely reactive mild bilateral cervical lymphadenopathy. No abnormal masses or fluid collections identified.
[2023-02-04 19:39] VITALS: BP 141/74; PULSE 76; RESP 14; TEMP 36.5; O2SAT 100
[2023-02-04 20:20] VITALS: BP 120/78; PULSE 67; RESP 18; O2SAT 99
--- NOTE | 2023-02-04 20:22 | ED.NECK ---
HPI - Neck Pain/Injury General Chief Complaint: Neck Pain/Injury Stated Complaint: neck pain and swelling Time Seen by Provider: 02/04/23 20:04 Source: patient Mode of arrival: ambulatory Limitations: no limitations History of Present Illness HPI Narrative: Patient is a 42-year-old female who presents to the ED with report of a swollen and painful lump to her left-sided neck. Patient reports she first noticed a swollen and tender lump to her left lateral neck, just below her left-sided jaw, yesterday. She feels that it has gotten slightly larger today which prompted her presentation. She also reports having changes to her voice, described as a hoarseness over the last 2 days which is not normal for her. She denies any other recent illness, sore throat, cough, cold symptoms, fevers. She denies difficulty breathing or swallowing. She denies odynophagia. Related Data Home Medications Medication Instructions Recorded Confirmed cholecalciferol (vitamin D3) 50 50 mcg PO HS 08/19/20 09/27/22 mcg (2,000 unit) capsule omega-3 fatty acids 1,000 mg 1,000 mg PO BID 08/19/20 09/27/22 capsule omeprazole 40 mg capsule,delayed 40 mg PO DAILY 08/19/20 09/27/22 release metformin 500 mg tablet 500 mg PO BID 09/27/22 09/27/22 Allergies Allergy/AdvReac Type Severity Reaction Status Date / Time amoxicillin Allergy Gastrointestinal Verified 02/04/23 20:26 Upset chicken derived Allergy Swelling Verified 02/04/23 20:26 of Lip/Tongue/Throat Penicillins Allergy Gastrointestinal Verified 02/04/23 20:26 Upset Eexxyrk-UNR-OnG Reductase AdvReac Muscle Pain Verified 02/04/23 20:26 Inhibitor [Concmji-Jrv-Yzn Reductase Inhibitor] Review of Systems Review of Systems: CONSTITUTIONAL: Denies fever, chills, or sweats. ENT: See HPI. CARDIOVASCULAR: Denies chest pain. RESPIRATORY: Denies cough or dyspnea. GASTROINTESTINAL: Denies abdominal pain, nausea, vomiting, or diarrhea. NEUROLOGIC: Denies headache, numbness, or weakness. All systems reviewed & are unremarkable except as noted in HPI and below PMFSH Past Medical History Medical History Abnormal stress electrocardiogram test DJD of AC (acromioclavicular) joint CHUNG (dyspnea on exertion) Dyslipidemia GERD (gastroesophageal reflux disease) Left shoulder pain Rotator cuff tendonitis Surgical History Surgical History History of cholecystectomy History of hysterectomy Family History Family History Father History of lung cancer Mother Hypertension Social History Social History Years smoked: 25 Smoking status: Former smoker Tobacco type: cigarettes Second hand tobacco smoke exposure: Yes Smoking end date: 06/24/19 Alcohol intake: unknown Substance use: never Substance use type: does not use Living arrangements: with family Additional living arrangements comments: LIVES W/ [facility] Gender identity (if verbalized by the patient): Female Spiritual care concerns: No Exam Narrative: GENERAL: Well appearing, well-nourished, non-toxic, in no acute distress. HEAD: Normocephalic, atraumatic. NECK: Supple. No masses. No meningeal signs. No pain with range of motion of neck. Small area of localized swelling to left lateral neck just inferior to posterior angle of mandible, focal tenderness to palpation, seems most consistent with enlarged lymph node. Small scabbed abrasion over area of swelling, no surrounding erythema/warmth, no drainage. No other prominent lymphadenopathy noted throughout anterior/posterior cervical region. No posterior midline spinal tenderness. ENT: No significant posterior pharynx erythema. No tonsillar hypertrophy or exudate. Uvula midline. RESPIRATORY:
[2023-02-04 21:17] LABS: Basophils Absolute Auto 0.1 K/mm3 (0.0-0.1); Basophils Percent Auto 0.6 % (0.2-1.2); Eosinophils Absolute Auto 0.2 K/mm3 (0-0.3); Eosinophils Percent Auto 1.9 % (0-4.4); Hematocrit 39.9 % (37.0-47.0); Hemoglobin 13.2 g/dL (12.0-15.0); Immature Granulocyte Absolute 0.02 K/mm3 (0.00-0.031); Immature Granulocyte Percent A 0.3 % (0-0.5); Lymphocytes Absolute Auto 3.67 K/mm3 (0.9-3.2); Lymphocytes Percent Auto 46.3 % (18.3-44.2); Mean Corpuscular HGB Conc 33.1 g/dl (32-36); Mean Corpuscular Hemoglobin 28.3 pg (26-34); Mean Corpuscular Volume 85.4 fl (80-100); Mean Platelet Volume 8.4 fl (7.4-10.4); Monocytes Absolute Auto 0.5 K/mm3 (0.1-0.6); Monocytes Percent Auto 5.9 % (2.6-8.5); Neutrophils Absolute Auto 3.6 K/mm3 (1.3-6.7); Platelet Count Result 319 k/mm3 (150-375); Red Blood Count 4.67 M/mm3 (4.2-5.4); Red Cell Distribution Width 12.9 % (11.5-14.5); White Blood Count 7.9 K/mm3 (4.5-10.0)
[2023-02-04 21:32] LABS: Anion Gap 9 mmol/L (8-16); Blood Urea Nitrogen 9 mg/dL (7-17); Calcium 9.6 mg/dL (8.4-10.2); Carbon Dioxide 29 mmol/L (22-30); Chloride 103 mmol/L (98-107); Estimated CRCL calculation 71 ml/min; Estimated Glomerular Filt Rate > 60; Glucose 97 mg/dL (65-110); Potassium 3.7 mmol/L (3.4-5.0); Sodium 141 mmol/L (137-145)
[2023-02-04 22:47] VITALS: BP 110/73; PULSE 86; RESP 18; O2SAT 100
== END 2023-02-04 22:49 | disposition home or self-care (01) ==
PROVIDERS: Emergency Provider Physician Assistant; PCP Nurse Practitioner Family
DX: R59.1 Generalized enlarged lymph nodes (principal); E78.5 Hyperlipidemia, unspecified; K21.9 Gastro-esophageal reflux disease without esophagitis; M19.019 Primary osteoarthritis, unspecified shoulder; Z79.84 Long term (current) use of oral hypoglycemic drugs; Z87.891 Personal history of nicotine dependence
CPT/HCPCS: 36415; 70491; 80048; 85025; 99284; Q9967

== ENCOUNTER 2024-10-18 07:14 | Outpatient (CLI) | payer OTHER, SELFPAY ==
--- NOTE | ~2024-10-18 | MM_ITS ---
EXAMINATION: MM screening sujatha BI w ant HISTORY: Screening mammogram TECHNIQUE: Craniocaudal and mediolateral oblique 3-D tomosynthesis images were obtained and synthetic 2-D images were generated. CAD analysis was submitted and interpreted. COMPARISON: 09/28/2021, 01/01/2020 BREAST PARENCHYMAL COMPOSITION:Dense: The breasts are heterogeneously dense, which may obscure small masses. FINDINGS: No suspicious mass, calcification, or architectural distortion are identified in either enrique ast to suggest malignancy. There has been no suspicious interval change. IMPRESSION: No mammographic evidence of malignancy. Recommend routine screening mammography in one year. BI-RADS Category 1: Negative Reviewed, dictated and finalized at location .
== END 2024-10-18 07:15 | disposition home or self-care (01) ==
LOC: ANHIMG 07:17
PROVIDERS: PCP Family Medicine; Visit Provider Family Medicine
DX: Z12.31 Encounter for screening mammogram for malignant neoplasm of breast (principal)
CPT/HCPCS: 77063; 77067

== ENCOUNTER 2025-01-13 07:57 | Day surgery (SDC) | payer OTHER, SELFPAY ==
[2024-11-15 10:32] VITALS: BMI 22.1
[2025-01-06 13:39] VITALS: BMI 22.1
[2025-01-13 08:14] VITALS: BP 110/77; PULSE 77; RESP 15; TEMP 36.3; O2SAT 100
[2025-01-13] MEDS: SIMETHICONE ORAL SUSPENSION 20 MG/0.3 ML 30 ML BOTTLE 1.8 ML PO (08:18)
[2025-01-13] MEDS: LACTATED RINGERS 1,000 ML 150 ML IV CONT (08:19)
--- OUTSIDE RECORDS SUMMARY | 2025-01-13 08:31 | XMS_ITS | Continuity of Care Document ---
Author Name Dayan Whittaker Address [address] [place], [place] [id number] [place] [address] Organization Unknown Address [address] [place] [address] [id number] [place] [address] Medications Problems
--- OUTSIDE RECORDS SUMMARY | 2025-01-13 08:31 | XMS_ITS | Continuity of Care Document ---
Author Name Snow Witt Address [address] [place], [place] [id number] [place] [address] Organization Unknown Address [address] [place] [id number] Medications No known medications Problems No known problems
--- OUTSIDE RECORDS SUMMARY | 2025-01-13 08:31 | XMS_ITS | Continuity of Care Document ---
Author Name Cande Ramirez Address [address] [place], [place] [id number] [place] [address] Organization Unknown Address [address] [place] [id number] Medications No known medications Problems No known problems
--- OUTSIDE RECORDS SUMMARY | 2025-01-13 08:31 | XMS_ITS | Continuity of Care Document ---
Author Name Snow Witt Address [address] [place], [place] [id number] [place] [address] Organization Unknown Address [address] [place] [id number] Medications No known medications Problems No known problems
--- NOTE | 2025-01-13 10:06 | PM.IMHP ---
H&P: HPI History of Present Illness Date/Time: 01/13/25 10:06 Chief Complaint: GERD Narrative: this patient has a longstanding history of heartburn, initially treated with omeprazole and subsequently switched to nexium. she denies dysphagia. She is now referred for EGD to rule out Diaz's esophagus. Review of Systems Review of Systems: All systems reviewed & are unremarkable except as noted in HPI and below PMFSH Past Medical History Medical History Encounter for screening colonoscopy DJD of AC (acromioclavicular) joint Rotator cuff tendonitis Left shoulder pain Abnormal stress electrocardiogram test CHUNG (dyspnea on exertion) Dyslipidemia GERD (gastroesophageal reflux disease) Surgical History Surgical History History of hysterectomy History of cholecystectomy Family History Family History Father History of lung cancer Mother Hypertension Social History Social History Years smoked: 25 Smoking status: Former smoker Tobacco type: cigarettes Second hand tobacco smoke exposure: Yes Smoking end date: 06/24/19 Additional smoking assessment comments: Quit 2020 Alcohol intake: unknown Substance use: never Substance use type: does not use Living arrangements: with family Additional living arrangements comments: LIVES W/ [facility] Gender identity (if verbalized by the patient): Female Spiritual care concerns: No Meds Home Medications and Allergies Home Medications ?Medication ?Instructions ?Recorded ?Confirmed ?Type omega-3 fatty acids 1,000 mg 1,000 mg PO BID 08/19/20 01/13/25 History capsule fenofibrate 160 mg tablet See Rx Instructions .Route 01/17/22 01/13/25 Rx .COMPLEX #30 tabs metformin 500 mg tablet 500 mg PO BID 09/27/22 01/13/25 History famotidine 40 mg tablet 40 mg PO QHS 12/06/23 01/13/25 History fluticasone propionate 50 1 spray intranasal DAILY PRN 12/06/23 01/13/25 History mcg/actuation nasal allergy symptoms spray,suspension (Allergy Relief (fluticasone)) levocetirizine 5 mg tablet 5 mg PO DAILY 12/06/23 01/13/25 History lisinopril 2.5 mg tablet 2.5 mg PO EVERY OTHER DAY 12/06/23 01/13/25 History tirzepatide 5 mg/0.5 mL 5 mg subcut WEEKLY 12/06/23 01/13/25 History subcutaneous pen injector (Reji) esomeprazole magnesium 40 mg 40 mg PO DAILY 1 month #30 caps 12/10/24 01/13/25 Rx capsule,delayed release (Nexium) aspirin 81 mg capsule 81 mg PO EVERY OTHER DAY 01/06/25 01/13/25 History Allergies Allergy/AdvReac Type Severity Reaction Status Date / Time amoxicillin Allergy Gastrointestinal Verified 01/13/25 08:13 Upset chicken derived Allergy Swelling Verified 01/13/25 08:13 of Lip/Tongue/Throat Penicillins Allergy Gastrointestinal Verified 01/13/25 08:13 Upset Fgjenzl-BKU-OrA Reductase AdvReac Muscle Pain Verified 01/13/25 08:13 Inhibitor (Zdtopqv-Hsk-Bsn Reductase Inhibitor) Vital Signs Vital Signs - 24 hr 01/13/25 08:14 Temperature 97.4 F L Pulse Rate 77 Respiratory Rate 15 Blood Pressure 110/77 Pulse Oximetry 100 Oxygen Delivery Room Air Exam Const: General: cooperative and healthy appearing Resp: Effort & Inspection: normal respiratory effort and able to speak in complete sentences Auscultation: clear to auscultation bilaterally Cardio: Rate: regular rate Rhythm: regular rhythm GI: Inspection: normal to inspection GI Palp: No No hepatosplenomegaly present Auscultation: normal bowel sounds Rectal Exam: deferred Skin: General skin exam: normal color Psych: Appearance: grossly normal Mental Status: mental status grossly normal Assessment and Plan Assessment and plan (1) GERD (gastroesophageal reflux disease): Code(s): K21.9 - Gastro-esophageal reflux disease without esophagitis Status: Acute Assessment and Plan: The patient is deemed a good candidate for the EGD. Consent signed. Will proceed.
--- NOTE | 2025-01-13 10:13 | WPDANESEPPF ---
Anes - Initial Pre Proc Eval Procedure: Operation Date: 01/13/25 08:30 Proposed Procedures p Esophagogastroduodenoscopy - Donavan Ledesma MD Date/Time: 01/13/25 10:13 Surgeon: Donavan Ledesma MD Pre Op Diagnosis: Gerd Patient Data Age: 44 Gender: F Height: 1.65 m Weight: 57.85 kg Last Vital Signs Temp 97.4 F L 01/13/25 08:14 Pulse 77 01/13/25 08:14 Resp 15 01/13/25 08:14 BP 110/77 01/13/25 08:14 Pulse Ox 100 01/13/25 08:14 O2 Del Method Room Air 01/13/25 08:14 Allergies Allergy/AdvReac Type Severity Reaction Status Date / Time amoxicillin Allergy Gastrointestinal Verified 01/13/25 08:13 Upset chicken derived Allergy Swelling Verified 01/13/25 08:13 of Lip/Tongue/Throat Penicillins Allergy Gastrointestinal Verified 01/13/25 08:13 Upset Evjevtx-RPQ-KbF Reductase AdvReac Muscle Pain Verified 01/13/25 08:13 Inhibitor (Nsfhkhv-Kqp-Umf Reductase Inhibitor) Home Medications ?Medication ?Instructions ?Recorded ?Confirmed ?Type omega-3 fatty acids 1,000 mg 1,000 mg PO BID 08/19/20 01/13/25 History capsule fenofibrate 160 mg tablet See Rx Instructions .Route 01/17/22 01/13/25 Rx .COMPLEX #30 tabs metformin 500 mg tablet 500 mg PO BID 09/27/22 01/13/25 History famotidine 40 mg tablet 40 mg PO QHS 12/06/23 01/13/25 History fluticasone propionate 50 1 spray intranasal DAILY PRN 12/06/23 01/13/25 History mcg/actuation nasal allergy symptoms spray,suspension (Allergy Relief (fluticasone)) levocetirizine 5 mg tablet 5 mg PO DAILY 12/06/23 01/13/25 History lisinopril 2.5 mg tablet 2.5 mg PO EVERY OTHER DAY 12/06/23 01/13/25 History tirzepatide 5 mg/0.5 mL 5 mg subcut WEEKLY 12/06/23 01/13/25 History subcutaneous pen injector (Reji) esomeprazole magnesium 40 mg 40 mg PO DAILY 1 month #30 caps 12/10/24 01/13/25 Rx capsule,delayed release (Nexium) aspirin 81 mg capsule 81 mg PO EVERY OTHER DAY 01/06/25 01/13/25 History Laboratory Tests 01/13/25 08:22 POC Capillary Glucose 92 mg/dl (65-105) Patient hx anesthesia problems: none Family hx anesthesia problems: none Results Review: All pre-operative results and documents have been reviewed as part of the pre-operative evaluation. [facility] Past Medical History Medical History Encounter for screening colonoscopy DJD of AC (acromioclavicular) joint Rotator cuff tendonitis Left shoulder pain Abnormal stress electrocardiogram test CHUNG (dyspnea on exertion) Dyslipidemia GERD (gastroesophageal reflux disease) Surgical History Surgical History History of hysterectomy History of cholecystectomy Family History Family History Father History of lung cancer Mother Hypertension Social History Social History Years smoked: 25 Smoking status: Former smoker Tobacco type: cigarettes Second hand tobacco smoke exposure: Yes Smoking end date: 06/24/19 Additional smoking assessment comments: Quit 2020 Alcohol intake: unknown Substance use: never Substance use type: does not use Living arrangements: with family Additional living arrangements comments: LIVES W/ [facility] Gender identity (if verbalized by the patient): Female Spiritual care concerns: No Anes - Eval Final PreProcedure Day of Procedure 01/13/25 10:13 Heart: regular rate and rhythm Lungs: clear to auscultation Airway: Mallampati scale class II Neurological: alert and oriented Last oral intake: >/= 8 hours ASA classification: II Anesthetic plan: proceed Anesthesia type and monitoring: monitored anesthesia care Results Review: All pre-operative results and documents have been reviewed as part of the pre-operative evaluation. Informed Consent: The patient's anesthetic plan and its attendant risks and benefits were discussed with the patient/family/POA. Questions were solicited and answers provided to the satisfaction of the patient/family/POA.
--- NOTE | 2025-01-13 10:14 | WPDANESPN ---
Anes - Prog Note Post-Op Date/Time: 01/13/25 10:14 Vital Signs: Last Vital Signs Temp 97.4 F L 01/13/25 08:14 Pulse 77 01/13/25 08:14 Resp 15 01/13/25 08:14 BP 110/77 01/13/25 08:14 Pulse Ox 100 01/13/25 08:14 O2 Del Method Room Air 01/13/25 08:14 Pain Score (VAS): no 01/13/25 08:22 POC Capillary Glucose 92 Patient Feedback: Patient satisfied with anesthetic care.
[2025-01-13 10:23] VITALS: BP 82/50; PULSE 74; RESP 14; O2SAT 98
[2025-01-13 10:33] VITALS: BP 94/65; PULSE 72; RESP 14; O2SAT 98
[2025-01-13 10:43] VITALS: BP 98/66; PULSE 67; RESP 16; O2SAT 100
== END 2025-01-13 10:50 | disposition home or self-care (01) ==
PROVIDERS: PCP Family Medicine; Visit Provider Internal Medicine Gastroenterology
PROC: 0DJ08ZZ Inspection of Upper Intestinal Tract, Via Natural or Artificial Opening Endoscopic (ICD-10-PCS; CPT 43235; principal; 2025-01-13 08:30)
DX: K21.9 Gastro-esophageal reflux disease without esophagitis (principal); K31.84 Gastroparesis
CPT/HCPCS: 43235